=== PATIENT | female | born 1945 | race Two or more races ===

== ENCOUNTER 2025-06-14 08:12 | Inpatient (IN) | payer MEDICARE, OTHER ==
[~2025-06-14] VITALS: Ht 162.6 cm; Wt 70.4 kg
[~2025-06-14 08:12] MED LIST: ATEN-60; LISI-711; METF-371; NOVOLOG; SIMV40TA18
--- NOTE | 2025-06-14 08:22 | ECG ---
[facility] Test Date: 2025-06-14 Test Time: 08:16:20 Pat Name: LORETA SIMS Department: Room: 0221 Gender: F Ordering Machine Operator: DEEPTI : 1945 Requested By: ALEKSEY PÉREZ Order Number: [id number] Reading MD: Collins Moreno Measurements Intervals [place] Rate: 49 P: 58 UT: 169 QRS: 6 QRSD: 90 T: 71 QT: 476 QTc: 430 Interpretive Statements Sinus bradycardia Low voltage, precordial leads Baseline wander in lead(s) V2 Electronically Signed On 06-17-2025 19:21:00 PST by Collins Moreno Please click the below link to view image of tracing.
--- NOTE | 2025-06-14 08:23 | ED.PDOC ---
Altered Mental Status HPI Comments 79 year old female with PMHx Dementia, HLD, HTN, DM presents to the ED via EMS with a chief complaint of ALOC onset today. Per EMS, patient's called 911 due to patient being altered, confused. Patient's baseline is A&O x2, currently A&O x1. She currently has PICC line in place on LT arm, is being treated for UTI, home health nurse visits daily to give antibiotic. Patient is poor historian. No other symptoms or modifying factors present at this time. Chief Complaint: ALOC Time Seen by MD: 08:20 Primary Care Provider: MATT Reviewed Notes: Medications, Allergies Allergies: Coded Allergies: NO KNOWN ALLERGIES (Unverified , 11/22/12) Home Meds Reported Medications Atenolol (Atenolol) 25 Mg Tab 11/22/12 Metformin Hydrochloride (Metformin Hcl) 850 Mg Tab 11/22/12 Simvastatin (Simvastatin) 40 Mg Tab 11/22/12 Lisinopril (Zestril) 20 Mg Tab 11/22/12 [Novolog] No Conflict Check 11/22/12 Information Source: Emergency Med Personnel Mode of Arrival: EMS Severity: Moderate Timing: Days Duration: Since onset Prehospital treatment: None Quality: Decreased Alertness, Change in Behavior, Confusion Recent: Urinary Symptoms History of: Dementia, Diabetes Past Medical History PAST MEDICAL HISTORY: Dementia, DM, High Lipids, HTN Surgical History: Hysterectomy Family History Family History: No family hx of DM, No family hx of HTN Social History Smoker: Quit Greater Than 1 Year, Less Than 1 Pack/Day Alcohol: Rarely Drugs: Denies Drug Use Lives In: Home Unable to Obtain due to: Altered Mental Status, Dementia Physical Exam General Appearance: Normal HEENT: Normal ENT Inspection, Pharynx Normal, TMs Normal Neck: Full Range of Motion, Non-Tender, Normal, Normal Inspection Respiratory: Chest Non-Tender, Lungs Clear, No Accessory Muscle Use, No Respiratory Distress, Normal Breath Sounds Cardiovascular: No Edema, No JVD, No Murmur, No Gallop, Normal Peripheral Pulses, Regular Rate/Rhythm Breast Exam: Deferred Gastrointestinal: No Organomegaly, Non Tender, No Pulsatile Mass, Normal Bowel Sounds, Soft Genitalia: Deferred Pelvic: Deferred Rectal: Deferred Extremities: No calf tenderness, Normal capillary refill, Non-tender, No pedal edema, Other (PICC line noted to LT arm) Musculoskeletal : Apperance: Normal Neurologic: Motor Weakness Cerebellar Function: Normal Reflexes: Normal Skin: Dry, Normal Color, Warm Lymphatic: No Adenopathy Was a procedure done? Was a procedure done?: No Differential Diagnosis (ALOC) Differential Diagnosis: Dehydration, Hypoglycemia, DKA, Hypoxemia, CVA, Mass Lesion, Heart Failure X-Ray, Labs, Meds, VS Vital Signs Date Time Temp Pulse Resp B/P (MAP) Pulse Ox O2 Delivery O2 Flow Rate FiO2 06/14/25 10:08 55 12 90 Room Air* 0 21 06/14/25 10:08 97.4 55 12 118/84 (95) 90 97.4 06/14/25 08:16 49 06/14/25 08:15 97.6 51 18 98 97.6 Lab Test 06/14/25 12:00 06/14/25 10:14 06/14/25 09:57 Range/Units Lactic Acid Level Pending 3.1 *H 0.4-2.0 mmol/L Troponin I High Sensitivity Pending 5 </=34 ng/L Urine Color Yellow Yellow Urine Clarity Clear Clear Urine pH 5.0 5.0-9.0 Urine Specific [place] 1.016 1.001-1.035 Urine Protein 1+ H Negative Urine Ketones Negative Negative Urine Blood Negative Negative /uL Urine Nitrite Negative Negative Urine Bilirubin Negative Negative Urine Urobilinogen Normal Negative mg/dL Urine Leukocyte Esterase Negative Negative /uL Urine RBC 3 0 - 4 /hpf Urine Microscopic WBC 7 H 0-5 /HPF Urine Squamous Epithelial Cells Few <5 /hpf Urine Bacteria None seen None Seen /hpf Urine Mucus Few None Seen Urine Yeast (Budding) Many None Seen /hpf Urine Glucose Normal Normal mg/dL White Blood Count 11.8 H 4.4-10.8 10^3/uL Red Blood Count 3.69 L 4.0-5.20 10^6/uL Hemoglobin 9.9 L 12.2-16.2 g/dL Hematocrit 31.7 L 36.0-46.0 % Mean Corpuscular Volume 85.9 80.0-100.0 fL Mean Corpuscular Hemoglobin 26.9 L 28.0-32.0 pg Mean Corpuscular Hemoglobin Concent 31.3 L 32.0-36.0 g/dL Red Cell Distribution Width 17.3 H 11.8-14.3 % Platelet Count 319 140-450 10^3/uL Mean Platelet Volume 9.0 6.9-10.8 fL Neutrophils (%) (Auto) 76.4 37.0-80.0 % Lymphocytes (%) (Auto) 14.1 10.0-50.0 % Monocytes (%) (Auto) 7.7 0.0-12.0 % Eosinophils (%) (Auto) 1.1 0.0-7.0 % Basophils (%) (Auto) 0.7 0.0-2.0 % Neutrophils # (Auto) 9.0 H 1.6-8.6 10 ^3/uL Lymphocytes # (Auto) 1.7 0.4-5.4 10 ^3/uL Monocytes # (Auto) 0.9 0-1.3 10 ^3/uL Eosinophils # (Auto) 0.1 0-0.8 10 ^3/uL Basophils # (Auto) 0.1 0-0.2 10 ^3/uL Nucleated Red Blood Cells 0.0 % Sodium Level 142 136-145 mmol/L Potassium Level 4.6 3.5-5.1 mmol/L Chloride Level 104 98-107 mmol/L Carbon Dioxide Level 23 20-31 mmol/L Anion Gap 15 5-15 Blood Urea Nitrogen 49 H 9-23 mg/dL Creatinine 1.24 H 0.550-1.02 mg/dL Glomerular Filtration Rate Calc 45 >90 mL/min BUN/Creatinine Ratio 39.5 H 10.0-20.0 Serum Glucose 213 H 74-106 mg/dL Calcium Level 9.6 8.7-10.4 mg/dL Total Bilirubin 0.5 0.2-1.0 mg/dL Aspartate Amino Transferase (AST) 25 13-40 U/L Alanine Aminotransferase (ALT) 18 7-40 U/L Alkaline Phosphatase 165 H 46-116 U/L B-Type Natriuretic Peptide 123.55 0-100 pg/mL Total Protein 7.2 5.7-8.2 g/dL Albumin 4.4 3.2-4.8 g/dL Lipase 36 12-53 U/L [facility] [id number] [place] [id number] Ph: [phone] DIAGNOSTIC IMAGING Diagnostic Imaging Report : [id number] Signed PATIENT: LORETA SIMS ACCT: [id number] UNIT: [id number] : 1945 LOC: ER ROOM / BED: / AGE / SEX: 79 / F ADM STATUS: REG ER SERVICE 8 ORDERING PHYSICIAN: ALEKSEY PÉREZ MD PROCEDURE(s): HWOCT - HEAD WITHOUT CONTRAST REASON: ams ORDER NUMBER(s): [id number], ACCESSION NUMBER(s): [id number] EXAM: CT HEAD WITHOUT CONTRAST INDICATION: ams TECHNIQUE: CT of the head without intravenous contrast. Radiation Dose Information: CT Dose: CTDI volume is 56.9 mGy. Dose-length product is 1007.6 mGy*cm The dose indicators for CT are the volume Computed Tomography (CT) Dose Index (CTDIvol) and the Dose Length Product (DLP), and are measured in units of mGy and mGy-cm, respectively. These indicators are not patient dose, but values generated from the CT scanner acquisition factors. The report includes radiation exposure data for exposures received during this examination. COMPARISON: None FINDINGS: There is no evidence of acute intracranial hemorrhage, extra-axial collection, mass effect, midline shift, herniation or hydrocephalus. The ventricles, sulci and cisterns are age appropriate. The seymour-white differentiation is intact. Patchy periventricular and subcortical white matter hypoattenuation is nonspecific but may be related to small vessel ischemic disease. The visualized paranasal sinuses and mastoid air cells are clear. The surrounding soft tissues and osseous structures are unremarkable. IMPRESSION: No acute intracranial abnormality. ATED BY: BRAYDON FORD MD DICTATED DATE/TIME: 06/14/25918 SIGNED BY: BRAYDON FORD MD SIGNED DATE/TIME: 06/14/25918 CC: [place] [id number] Ph: [phone] DIAGNOSTIC IMAGING Diagnostic Imaging Report : [id number] Signed PATIENT: LORETA SIMS ACCT: [id number] UNIT: [id number] : 1945 LOC: ER ROOM / BED: / AGE / SEX: 79 / F ADM STATUS: REG ER SERVICE 8 ORDERING PHYSICIAN: ALEKSEY PÉREZ MD PROCEDURE(s): CXRP - CHEST PORTABLE REASON: ams ORDER NUMBER(s): [id number], ACCESSION NUMBER(s): [id number] INDICATION: ams TECHNIQUE: Frontal view of the chest. COMPARISON: None FINDINGS: Cortical deformity involving the proximal right humerus, dedicated right should er x-ray is recommended.. The heart and mediastinal contours are grossly unremarkable. There is no evidence of pleural disease. The lungs are clear. . IMPRESSION: 1. No evidence of acute disease. ATED BY: BRAYDON FORD MD DICTATED DATE/TIME: 06/14/25922 SIGNED BY: BRAYDON FORD MD SIGNED DATE/TIME: 06/14/25922 CC: Time of 1ST Reevaluation: 08:50 Reevaluation 1ST: Unchanged Patient Education/Counseling: Other Family Education/Counseling: No Family Present SEPSIS Sepsis Screen Date sepsis recognized/suspect: Jun 14, 2025 Time Sepsis recognized/suspect: 817 Recent Procedure: No On Antibiotic Therapy: Yes (UNKNOWN ABX FOR UTI) Respiratory Rate >20: No Heart Rate >90: No Temp<36 C (96.8 F) or >38.3 C: No SBP <90 or MAP <65 mmHG: No New Acute Mental Status Change: No Is the patient on CPAP, BIPAP,: No Physician Orders Chest Portable (06/14/25 08:19) Head Without Contrast (06/14/25 08:19) Blood Culture (06/14/25 08:19) Urine Bacterial Culture (06/14/25 08:19) Troponin-I Hs (06/14/25 09:19) Troponin-I Hs (06/14/25 11:19) Electrocardigram (06/14/25 09:19) Electrocardigram (06/14/25 11:19) Straight Cath. (06/14/25 ) Cefepime 2gm Extended Infusion (06/14/25 12:30) Vancomycin (06/14/25 12:30) Vital Signs Date Time Temp Pulse Resp B/P (MAP) Pulse Ox O2 Delivery O2 Flow Rate FiO2 06/14/25 10:08 55 12 90 Room Air* 0 21 06/14/25 10:08 97.4 55 12 118/84 (95) 90 97.4 06/14/25 08:16 49 06/14/25 08:15 97.6 51 18 14 98 97.6 Laboratory Tests Test 06/14/25 09:57 06/14/25 12:00 Lactic Acid Level 3.1 mmol/L (0.4-2.0) *H Pending White Blood Count 11.8 10^3/uL (4.4-10.8) H Departure 1 Departure Time of Disposition: 12:31 (Patient with a worsening altered mental status and suspected sepsis. We will empirically cover patient with antibiotics. Patient appears mildly volume overloaded so we will not give the patient a full fluid bolus. We will admit patient for further workup and expert consultation) Impression: Primary Impression: Acute metabolic encephalopathy Additional Impression: Suspected sepsis Disposition: ADMITTED INPATIENT Admit to: Tele Condition: Guarded Critical Care Note Critical Care Time?: Yes Critical care comment: Suspected sepsis and encephalopathy Authorized and Performed by: Aleksey Pérez MD Total critical care time: Approximately 39 minutes Due to a high probability of clinically significant, life threatening deterioration, the patient required my highest level of preparedness to intervene emergently and I personally spent this critical care time directly and personally managing the patient. This critical care time included obtaining a history; examining the patient; pulse oximetry; ordering and review of studies; arranging urgent treatment with development of a management plan; evaluation of patient's response to treatment; frequent reassessment; and, discussions with other providers. This critical care time was performed to assess and manage the high probability of imminent, life-threatening deterioration that could result in multi-organ failure. It was exclusive of separately billable procedures and treating other patients and teaching time. Please see my other sections and the rest of the note for further information on patient assessment and treatment. Stability Stability form required: No Heart Score Heart Score: Heart Score Response (Comments) Value History N/A 0 EKG N/A 0 Age N/A 0 Risk Factors N/A 0 Troponin N/A 0 Total 0 I personally scribed for ALEKSEY PÉREZ MD ([email or web address]) on 06/14/25 at 08:23. Electronically submitted by Wendy Luz ([email or web address]). I personally scribed for ALEKSEY PÉREZ MD ([email or web address]) on 06/14/25 at 09:35. Electronically submitted by Wendy Luz ([email or web address]). ALEKSEY PÉREZ MD Jun 14, 2025 08:23
--- NOTE | 2025-06-14 09:22 | DVH ---
EXAM: CT HEAD WITHOUT CONTRAST INDICATION: ams TECHNIQUE: CT of the head without intravenous contrast. Radiation Dose Information: CT Dose: CTDI volume is 56.9 mGy. Dose-length product is 1007.6 mGy*cm The dose indicators for CT are the volume Computed Tomography (CT) Dose Index (CTDIvol) and the Dose Length Product (DLP), and are measured in units of mGy and mGy-cm, respectively. These indicators are not patient dose, but values generated from the CT scanner acquisition factors. The report includes radiation exposure data for exposures received during this examination. COMPARISON: None FINDINGS: There is no evidence of acute intracranial hemorrhage, extra-axial collection, mass effect, midline shift, herniation or hydrocephalus. The ventricles, sulci and cisterns are age appropriate. The seymour-white differentiation is intact. Patchy periventricular and subcortical white matter hypoattenuation is nonspecific but may be related to small vessel ischemic disease. The visualized paranasal sinuses and mastoid air cells are clear. The surrounding soft tissues and osseous structures are unremarkable. IMPRESSION: No acute intracranial abnormality.
--- NOTE | 2025-06-14 09:25 | DVH ---
INDICATION: ams TECHNIQUE: Frontal view of the chest. COMPARISON: None FINDINGS: Cortical deformity involving the proximal right humerus, dedicated right shoulder x-ray is recommended.. The heart and mediastinal contours are grossly unremarkable. There is no evidence of pleural disease. The lungs are clear. . IMPRESSION: 1. No evidence of acute disease.
[2025-06-14 10:08] VITALS: PULSE 55; RESP 12; O2SAT 90
[2025-06-14 10:26] LABS: Mean Corpuscular Hemoglobin 26.9 pg (28.0-32.0); Nucleated Red Blood Cells % 0.0 %
[2025-06-14 10:28] LABS: Hematocrit 31.7 % (36.0-46.0); Hemoglobin 9.9 g/dL (12.2-16.2); Mean Corpuscular Volume 85.9 fL (80.0-100.0)
[2025-06-14 10:32] LABS: Alanine Aminotransferase 18 U/L (7-40); Albumin 4.4 g/dL (3.2-4.8); Anion Gap 15 (5-15); BUN/Creatinine Ratio 39.5 (10.0-20.0); Calcium 9.6 mg/dL (8.7-10.4); Carbon Dioxide 23 mmol/L (20-31); Chloride 104 mmol/L (98-107); Lipase 36 U/L (12-53); Potassium 4.6 mmol/L (3.5-5.1); Sodium 142 mmol/L (136-145); Total Protein 7.2 g/dL (5.7-8.2)
[2025-06-14 10:33] LABS: Bilirubin, Total 0.5 mg/dL (0.2-1.0)
[2025-06-14 10:35] LABS: Alkaline Phosphatase 165 U/L (46-116); Blood Urea Nitrogen 49 mg/dL (9-23); Glucose 213 mg/dL (74-106)
[2025-06-14 10:57] LABS: Lactic Acid w/Reflex 3.1 mmol/L (0.4-2.0)
[2025-06-14 11:52] LABS: Urine Budding Yeast MANY /hpf (None Seen); Urine Protein, UAD 1+ (Negative)
[2025-06-14] MEDS ORDERED: CEFEPIME 2GM/50ML NS 50 ML IV ONE (12:30)
--- NOTE | 2025-06-14 13:01 | DVHHP2 ---
History of Present Illness History of Present Illness This is a 79-year-old female with a history of endometrial and ovarian cancer, recurrent nephrolithiasis, multiple UTIs, hypertension, diabetes, and hyperlipidemia. She was brought by her after an acute change in mental status today; he reportedly called 911. Baseline per EMR is A&O 2, and on my evaluation she remained A&O 2. She was evaluated alone. She has a PICC in the left arm for outpatient ertapenem therapy for a presumed UTI. Vitals on arrival showed no fever, pulse 55, RR 12, BP 118/84, and SpO2 90% on room air. Labs showed WBC 11.8, Hgb 9.9, platelets 319, Na and K normal, Cr 1.24 with GFR 45, glucose 213, alkaline phosphatase 164, BNP 123. UA had 1+ protein without pyuria or nitrites, which may be affected by ongoing carbapenem therapy. Head CT was normal and chest X-ray showed no acute disease. She will be admitted for evaluation of sepsis and acute encephalopathy, likely related to a urinary source given her ongoing treatment. PMH Endometrial cancer, ovarian cancer, recurrent nephrolithiasis, recurrent UTIs, hypertension, diabetes mellitus type 2, hyperlipidemia, dementia. PSH Gynecologic surgeries; other surgical history not reported. Social History Lives with . No known alcohol, tobacco, or drug use. ROS Negative except mental status change. Review of Systems Allergies: Coded Allergies: NO KNOWN ALLERGIES (Unverified , 11/22/12) Medications Current Medications Medications Dose Ordered Sig/Dannielle Route Start Time Stop Time Status Last Admin Dose Admin Sodium Chloride 1,000 ml @ 60 mls/hr [id number] IV 06/14/25 12:45 UNV Acetaminophen 650 mg Q6HP PRN PO 06/14/25 12:45 UNV Enoxaparin Sodium 40 mg DAILY SC 06/15/25 10:00 UNV Meropenem 50 ml @ 17 mls/hr Q12HR IV 06/14/25 22:00 UNV Exam Vital Signs Vital Signs Date Time Temp Pulse Resp B/P (MAP) Pulse Ox O2 Delivery O2 Flow Rate FiO2 06/14/25 10:08 55 12 90 Room Air* 0 21 06/14/25 10:08 97.4 118/84 (95) 97.4 Exam General: Awake, cooperative, A&O 2. HEENT: No focal deficits. Neck: Supple. Cardiac: Regular rate and rhythm. Lungs: Clear bilaterally. Abdomen: Soft, nondistended, nontender. Extremities: No edema. Neuro: No focal deficits. Skin: PICC line left arm without erythema. Labs/Xrays Labs Test 06/14/25 12:00 06/14/25 10:14 06/14/25 09:57 Range/Units Lactic Acid Level 1.5 0.4-2.0 mmol/L Troponin I High Sensitivity 5 </=34 ng/L Urine Color Yellow Yellow Urine Clarity Clear Clear Urine pH 5.0 5.0-9.0 Urine Specific [place] 1.016 1.001-1.035 Urine Protein 1+ H Negative Urine Ketones Negative Negative Urine Blood Negative Negative /uL Urine Nitrite Negative Negative Urine Bilirubin Negative Negative Urine Urobilinogen Normal Negative mg/dL Urine Leukocyte Esterase Negative Negative /uL Urine RBC 3 0 - 4 /hpf Urine Microscopic WBC 7 H 0-5 /HPF Urine Squamous Epithelial Cells Few <5 /hpf Urine Bacteria None seen None Seen /hpf Urine Mucus Few None Seen Urine Yeast (Budding) Many None Seen /hpf Urine Glucose Normal Normal mg/dL White Blood Count 11.8 H 4.4-10.8 10^3/uL Red Blood Count 3.69 L 4.0-5.20 10^6/uL Hemoglobin 9.9 L 12.2-16.2 g/dL Hematocrit 31.7 L 36.0-46.0 % Mean Corpuscular Volume 85.9 80.0-100.0 fL Mean Corpuscular Hemoglobin 26.9 L 28.0-32.0 pg Mean Corpuscular Hemoglobin Concent 31.3 L 32.0-36.0 g/dL Red Cell Distribution Width 17.3 H 11.8-14.3 % Platelet Count 319 140-450 10^3/uL Mean Platelet Volume 9.0 6.9-10.8 fL Neutrophils (%) (Auto) 76.4 37.0-80.0 % Lymphocytes (%) (Auto) 14.1 10.0-50.0 % Monocytes (%) (Auto) 7.7 0.0-12.0 % Eosinophils (%) (Auto) 1.1 0.0-7.0 % Basophils (%) (Auto) 0.7 0.0-2.0 % Neutrophils # (Auto) 9.0 H 1.6-8.6 10 ^3/uL Lymphocytes # (Auto) 1.7 0.4-5.4 10 ^3/uL Monocytes # (Auto) 0.9 0-1.3 10 ^3/uL Eosinophils # (Auto) 0.1 0-0.8 10 ^3/uL Basophils # (Auto) 0.1 0-0.2 10 ^3/uL Nucleated Red Blood Cells 0.0 % Sodium Level 142 136-145 mmol/L Potassium Level 4.6 3.5-5.1 mmol/L Chloride Level 104 98-107 mmol/L Carbon Dioxide Level 23 20-31 mmol/L Anion Gap 15 5-15 Blood Urea Nitrogen 49 H 9-23 mg/dL Creatinine 1.24 H 0.550-1.02 mg/dL Glomerular Filtration Rate Calc 45 >90 mL/min BUN/Creatinine Ratio 39.5 H 10.0-20.0 Serum Glucose 213 H 74-106 mg/dL Calcium Level 9.6 8.7-10.4 mg/dL Total Bilirubin 0.5 0.2-1.0 mg/dL Aspartate Amino Transferase (AST) 25 13-40 U/L Alanine Aminotransferase (ALT) 18 7-40 U/L Alkaline Phosphatase 165 H 46-116 U/L B-Type Natriuretic Peptide 123.55 0-100 pg/mL Total Protein 7.2 5.7-8.2 g/dL Albumin 4.4 3.2-4.8 g/dL Lipase 36 12-53 U/L SEPSIS Sepsis Screen Date sepsis recognized/suspect: Jun 14, 2025 Time Sepsis recognized/suspect: 817 Recent Procedure: No On Antibiotic Therapy: Yes (UNKNOWN ABX FOR UTI) Respiratory Rate >20: No Heart Rate >90: No Temp<36 C (96.8 F) or >38.3 C: No SBP <90 or MAP <65 mmHG: No New Acute Mental Status Change: No Is the patient on CPAP, BIPAP,: No Physician Orders Chest Portable (06/14/25 08:19) Head Without Contrast (06/14/25 08:19) Blood Culture (06/14/25 08:19) Urine Bacterial Culture (06/14/25 08:19) Electrocardigram (06/14/25 09:19) Electrocardigram (06/14/25 11:19) Straight Cath. (06/14/25 ) Cefepime 2gm/50ml Ns (Maxipime 2gm/50ml) (06/14/25 12:30) Vancomycin 1gm/250ml Kit (06/14/25 12:30) Code Status (06/14/25 12:43) Vital Signs .PER UNIT PROTOCOL (06/14/25 12:43) Review Orders With Adm.Md (06/14/25 12:43) Consistent Carb([facility])Diabetes (06/14/25 Lunch) Sodium Chloride 0.9% (06/14/25 12:45) Acetaminophen Tablet (Tylenol Tablet) (06/14/25 12:45) Notify Md Of Changes From Base (06/14/25 12:43) Advance Directive (06/14/25 12:43) Patient Condition (06/14/25 12:43) Allergies (06/14/25 12:43) Drug Screen (06/14/25 12:43) Ambulate Every 4hours Q4H (06/14/25 12:43) Hemoglobin A1c (06/14/25 12:43) Enoxaparin Sodium (Lovenox) (06/15/25 10:00) Oxygen By Nasal Cannula (06/14/25 12:43) Stat Ekg For Chest Pain (06/14/25 12:43) Notify Md Of Changes From Base (06/14/25 12:43) Commercial Correspondent For 24 Hours (06/14/25 12:43) Emergency Dysrhythmia Protocol (06/14/25 12:43) Rhythm Strips Once Every Shift (06/14/25 12:43) Meropenem 1gm Ivpb (Merrem 1gm/50ml) (06/14/25 12:45) Meropenem 1gm Ivpb (Merrem 1gm/50ml) (06/14/25 22:00) Admit (06/14/25 12:54) Communication Order (06/14/25 12:59) Ct Ab Pel Wo Con-No Oral Or Iv (06/14/25 12:59) Vital Signs Date Time Temp Pulse Resp B/P (MAP) Pulse Ox O2 Delivery O2 Flow Rate FiO2 06/14/25 10:08 55 12 90 Room Air* 0 21 06/14/25 10:08 97.4 55 12 118/84 (95) 90 97.4 06/14/25 08:16 49 06/14/25 08:15 97.6 51 18 98 97.6 Laboratory Tests Test 06/14/25 09:57 06/14/25 12:00 Lactic Acid Level 3.1 mmol/L (0.4-2.0) *H 1.5 mmol/L (0.4-2.0) White Blood Count 11.8 10^3/uL (4.4-10.8) H Assessment/Plan Assessment/Plan # Sepsis, possible complicated UTI Likely urinary source given her recent outpatient ertapenem use and history of recurrent UTIs, with leukocytosis and acute encephalopathy as possible organ dysfunction. She requires inpatient evaluation to assess for resistant organisms or occult complications such as pyelonephritis or abscess. Start meropenem given recent carbapenem exposure, obtain blood and urine cultures, gentle IV hydration at 60 mL/hr and monitor vitals and urine output. CT abdomen/pelvis ordered to evaluate source. Continue to follow labs and adjust antibiotics per culture data. # Acute metabolic encephalopathy Likely secondary to infection superimposed on baseline dementia. Neuro exam without focal deficits and head CT is normal, making structural causes less likely. Treat underlying infection, maintain stable hemodynamics, correct metabolic derangements, and provide delirium precautions. # Dementia Baseline A&O 2 with recent acute worsening. to be contacted for collateral and to clarify cognitive baseline. # Diabetes mellitus type 2 Glucose 213 on arrival. Will hold SGLT2 inhibitor during acute illness and start insulin sliding scale. # Hypertension BP stable on arrival. Will resume home atenolol, amlodipine, and lisinopril as tolerated and monitor. # Hyperlipidemia # Hypothyroidism Resume home levothyroxine. # History of recurrent UTI High likelihood of resistant organisms given outpatient ertapenem use. Broad- spectrum coverage with meropenem is appropriate pending cultures and imaging. # Antiplatelet therapy clopidogrel Home medication per outside records. Need confirmation from regarding indication, especially considering comorbidities. Will resume if safe. Case discussed with Dr Saleh Full code DVT prophylaxis: enoxaparin Plan discussed with: Patient, Other (rn) My Orders Orders - MAXIM BERMUDEZ RESIDENT Procedure Category Date Status Time Code Status CODE 06/14/25 Transmitted 12:43 Vital Signs SAIDA 06/14/25 In Process 12:43 Review Orders With SAIDA 06/14/25 In Process Adm.Md 12:43 Consistent DIET 06/14/25 Transmitted Carb(Ccho)Diabetes Lunch Sodium Chloride 0.9% PHA 06/14/25 Logged 12:45 Acetaminophen Tablet PHA 06/14/25 Logged (Tylenol Tablet) 12:45 Notify Md Of Changes [facility] 06/14/25 In Process From Base 12:43 Advance Directive [facility] 06/14/25 In Process 12:43 Patient Condition ORDERS 06/14/25 Transmitted 12:43 Allergies SAIDA 06/14/25 In Process 12:43 Drug Screen LAB 06/14/25 In Process 12:43 Ambulate Every 4hours [facility] 06/14/25 In Process 12:43 Hemoglobin A1c LAB 06/14/25 In Process 12:43 Enoxaparin Sodium PHA 06/15/25 Logged (Lovenox) 10:00 Oxygen By Nasal RT 06/14/25 Transmitted Cannula 12:43 Stat Ekg For Chest [facility] 06/14/25 In Process Pain 12:43 Notify Md Of Changes [facility] 06/14/25 In Process From Base 12:43 Commercial Correspondent For [facility] 06/14/25 In Process 24 Hours 12:43 Emergency Dysrhythmia [facility] 06/14/25 In Process Protocol 12:43 Rhythm Strips Once [facility] 06/14/25 In Process Every Shift 12:43 Meropenem 1gm Ivpb PHA 06/14/25 Logged (Merrem 1gm/50ml) 12:45 Meropenem 1gm Ivpb PHA 06/14/25 Logged (Merrem 1gm/50ml) 22:00 Admit ADMIT 06/14/25 Transmitted 12:54 Communication Order ORDERS 06/14/25 Transmitted 12:59 Ct Ab Pel Wo Con-No CT 06/14/25 Logged Oral Or Iv 12:59 Date of Service: Jun 14, 2025 Billing Provider: MAXIM BERMUDEZ Common Visit Codes: [id number] INP/OBS CARE (HIGH) Secondary Visit Codes: [id number] CARE PLAN 30 MINUTES MAXIM BERMUDEZ Jun 14, 2025 13:00
[2025-06-14] MEDS: VANCOMYCIN 1GM/250ML KIT 250 ML IV ONE (13:07)
[2025-06-14] MEDS ORDERED: DEXTROSE (50%) 50ML SYRG IV PRN (13:15)
[2025-06-14] MEDS: SODIUM CHLORIDE 0.9% 1,000 ML IV SCH (13:34)
[2025-06-14 14:07] LABS: Triglycerides 163 mg/dL (< 150)
[2025-06-14 14:08] LABS: Cholesterol 131 mg/dL (< 200); HDL Cholesterol 34 mg/dL (40-59)
[2025-06-14] MEDS: MEROPENEM 1GM IVPB 50 ML IV ONE (14:10)
--- NOTE | 2025-06-14 14:20 | DVH ---
EXAM: CT CT AB PEL WO CON-NO ORAL OR IV HISTORY: sepsis work up Comparison Study: None Exam Date: 06/14/2025 01:16 PM Radiation Dose Information: CT Dose: CTDI volume is 16.38 mGy. Dose-length product is 952.93 mGy*cm Technique: Multidetector CT of the abdomen and pelvis was performed. Imaging was performed without IV contrast. Axial, coronal and sagittal multiplanar reformats were obtained from the axial data set by the technologist. Findings: Lack of intravenous contrast compromises evaluation of perfusion and for isodense lesions. Lower chest: Clear. Liver: Unremarkable Biliary system: Unremarkable Spleen: Unremarkable Pancreas: Unremarkable. Adrenals: 2 cm indeterminate left adrenal nodule. Kidneys and ureters: Mild left-sided pelviectasis without overt hydronephrosis. Left upper pole cysts. Bowel: No obstruction. Colonic diverticulosis without associated colonic wall thickening or surrounding stranding. Bladder: Unremarkable Reproductive organs: No abnormal mass. Lymph nodes: Unremarkable. Peritoneum: Unremarkable Vessels: Patency not evaluated on this noncontrast study. Bones and soft tissue: No aggressive osseous lesion IMPRESSION: No acute CT findings in the abdomen and pelvis. Indeterminate 2 cm left adrenal nodule.
[2025-06-14] MEDS: InsuLIN REG 1unit/0.01ml Soln (100units/ml) SC SCH (17:43)
[2025-06-14] MEDS: ACCU-CHEK COMFORT CURVE STRIP VI SCH (17:43)
[2025-06-14 19:30] VITALS: PULSE 78; RESP 14; O2SAT 95
[2025-06-14 20:20] VITALS: BP 153/85; PULSE 53; RESP 17; TEMP 97.3; O2SAT 96
[2025-06-14] MEDS ORDERED: DONE1TAB88 PO (21:57)
[2025-06-14] MEDS ORDERED: AMLO1TAB22 PO (21:57)
[2025-06-14] MEDS ORDERED: QUET1TAB11 PO (21:57)
[2025-06-14] MEDS ORDERED: DAPA1TAB PO (21:57)
[2025-06-14] MEDS ORDERED: CHOL4POW33 PO (21:57)
[2025-06-14] MEDS ORDERED: ATOR40TA52 PO (21:57)
[2025-06-14] MEDS ORDERED: LISI40TA16 PO (21:57)
[2025-06-14] MEDS ORDERED: MEMA1TAB5 PO (21:57)
[2025-06-14] MEDS ORDERED: ATEN25TA PO (21:57)
[2025-06-14] MEDS ORDERED: LEVO75TA6 PO (21:57)
[2025-06-14] MEDS ORDERED: ERTA1INJ (21:57)
[2025-06-14] MEDS ORDERED: OMEP1CAP70 PO (21:57)
[2025-06-14] MEDS ORDERED: CITA-77 PO (21:57)
[2025-06-14] MEDS ORDERED: CLOP75TA70 PO (21:57)
[2025-06-14] MEDS: MEROPENEM 1GM IVPB 50 ML IV SCH (23:44)
[2025-06-15 01:00] VITALS: BP 146/48; PULSE 60; RESP 18; TEMP 97.8; O2SAT 97
[2025-06-15 05:00] VITALS: BP 146/69; PULSE 59; RESP 17; TEMP 97.3; O2SAT 96
[2025-06-15] MEDS: LEVOTHYROXINE SODIUM 25 MCG TAB PO SCH (06:39)
[2025-06-15 06:53] LABS: Hematocrit 29.2 % (36.0-46.0); Hemoglobin 9.4 g/dL (12.2-16.2); Mean Corpuscular Hemoglobin 27.3 pg (28.0-32.0); Mean Corpuscular Volume 84.3 fL (80.0-100.0); Nucleated Red Blood Cells % 0.1 %
[2025-06-15 07:20] LABS: Alanine Aminotransferase 15 U/L (7-40); Albumin 3.9 g/dL (3.2-4.8); Anion Gap 12 (5-15); BUN/Creatinine Ratio 36.9 (10.0-20.0); Calcium 9.3 mg/dL (8.7-10.4); Carbon Dioxide 25 mmol/L (20-31); Chloride 107 mmol/L (98-107); Potassium 3.9 mmol/L (3.5-5.1); Sodium 144 mmol/L (136-145); Total Protein 6.3 g/dL (5.7-8.2)
[2025-06-15 07:21] LABS: Bilirubin, Total 0.5 mg/dL (0.2-1.0)
[2025-06-15 07:24] LABS: Alkaline Phosphatase 141 U/L (46-116); Blood Urea Nitrogen 31 mg/dL (9-23); Glucose 126 mg/dL (74-106)
[2025-06-15] MEDS: ENOXAPARIN SOD 40 MG/0.4 ML SYRINGE SC SCH (09:12)
[2025-06-15] MEDS ORDERED: VANCOMYCIN PER PHARMACY 0 MG IV SCH (10:00)
[2025-06-15] MEDS: VANCOMYCIN 1GM/250ML KIT 250 ML IV ONE (10:56)
--- NOTE | 2025-06-15 13:08 | ECG ---
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
--- NOTE | 2025-06-15 13:52 | DVHPNRES ---
Progress Note Date Seen: Jun 15, 2025 Resident Creating Document: SONIA ROCA RESIDENT Medical Necessity Reason Pt with a Central, PICC or Fol: Yes The following are medically ne: PICC Line Subjective Review of Systems This is a 79-year-old female with a PMH of endometrial and ovarian cancer, recurrent nephrolithiasis, multiple UTIs, S/P TAVR,dementia, hypertension, diabetes, and hyperlipidemia. She was brought by her after an acute change in mental status today; as per patient went to [facility] almost 10 days before and put her on IV antibiotic for UTI. patient's reported yesterday patient was more agitated and not following, and, more disoriented, lying on the floor. As per , patient at home is confused, AAO1-2 So reportedly called 911. Baseline per EMR is A&O 2, and on my evaluation she remained A&O 2. She was evaluated alone. She has a Mid line in the left arm for outpatient ertapenem therapy for a presumed UTI. Vitals on arrival showed no fever, pulse 55, RR 12, BP 118/84, and SpO2 90% on room air. Labs showed WBC 11.8, Hgb 9.9, platelets 319, Na and K normal, Cr 1.24 with GFR 45, glucose 213, alkaline phosphatase 164, BNP 123. UA had 1+ protein without pyuria or nitrites, which may be affected by ongoing carbapenem therapy. Head CT was normal and chest X-ray showed no acute disease. She will be admitted for evaluation of sepsis and acute encephalopathy, likely related to a urinary source given her ongoing treatment. CT abdomen and pelvis- No acute CT findings in the abdomen and pelvis. Indeterminate 2 cm left adrenal nodule. CT head no acute intracranial abnormality PMH-Endometrial cancer, ovarian cancer, recurrent nephrolithiasis, recurrent UTIs, hypertension, diabetes mellitus type 2, hyperlipidemia, dementia. PSH-Gynecologic surgeries; other surgical history not reported. Social History-Lives with . No known alcohol, tobacco, or drug use. ROS-Details could not be obtained due to patient's altered mental status Patient was seen today at bedside, Labs and chart reviewed Patient has a midline of the left arm Patient on meropenem Urine culture no growth so far Blood culture no growth so far BERNICE improving Bedside bladder scan revealed urine retention 1000 mL, ordered to insert Mar catheter Ordered renal ultrasound Spoke to patient's Pascual, , discussed patient's current medical condition, plan of care and answered questions Objective vital signs Vital Sign Date Time Temp Pulse Resp B/P (MAP) Pulse Ox O2 Delivery O2 Flow Rate FiO2 06/15/25 08:26 Room Air* 0 21 06/15/25 05:00 97.3 59 17 146/69 (94) 96 97.3 Total Intake and Output 06/14/25 06/14/25 06/15/25 15:00 23:00 07:00 Intake Total 310 ml 410 ml 50 ml Balance 310 ml 410 ml 50 ml medications Current Medications Medications Dose Ordered Sig/Dannielle Route Start Time Stop Time Status Last Admin Dose Admin Sodium Chloride 1,000 ml @ 60 mls/hr [id number] IV 06/14/25 12:45 06/15/25 06:40 60 MLS/HR Acetaminophen 650 mg Q6HP PRN PO 06/14/25 12:45 Enoxaparin Sodium 40 mg DAILY SC 06/15/25 10:00 06/15/25 09:12 40 MG Meropenem 50 ml @ 17 mls/hr Q12HR IV 06/14/25 22:00 06/15/25 09:13 17 MLS/HR Diagnostic Test (Pha) 1 strip ACHS 06/14/25 17:00 06/15/25 10:59 1 STRIP Insulin Human Regular ACHS SC 06/14/25 17:00 06/15/25 11:11 2 UNITS Dextrose 50 ml UD PRN IV 06/14/25 13:15 Levothyroxine Sodium 75 mcg QAM@0600 PO 06/15/25 06:00 06/15/25 06:39 75 MCG Vancomycin HCl 0 ml @ 0 mls/hr PER PHARMACY IV 06/15/25 10:00 Examination General examination- patient with confusion HEENT- PEERLA, no acute nasal discharge Cardiovascular- S1-S2 audible, rate and rhythm regular, no murmur Respiratory- CTAB, no wheeze or rhonchi Gastrointestinal-nontender, bowel sound+. Nondistended Musculoskeletal-no acute joint swelling or tenderness or redness Lower extremity- no leg edema Neurological- cranial nerves intact, no acute dysarthria or dysphagia Psychiatry- alert and oriented x0-1 Skin- no acute rash or purpura laboratory and microbiology Laboratory Tests 06/15/25 06:24 Test 06/15/25 06:24 Range/Units Serum Glucose 126 H 74-106 mg/dL Microbiology Date/Time Source Procedure Growth Status 06/14/25 10:14 Voided Urine Urine Culture - Preliminary No growth Resulted 06/14/25 10:11 Blood Blood Culture - Preliminary NO GROWTH AFTER 24 HOURS OF INCUBATION. Resulted Problem List/Assessment/Plan Problem List/Assessment/Plan Assessment and plan # Acute metabolic encephalopathy likely due to UTI # Acute urinary retention # suspected sepsis likely from UTI # BERNICE likely due to VMN -at home patient was on ertapenem for UTI diagnosis at [facility] recently Urine culture no growth so far Blood culture no growth so far -continue meropenem as prescribed -continue IV fluid as prescribed -ordered Mar catheter -ordered renal ultrasound for further evaluation and care -monitor BMP # hypothyroidism -restarted home medication levothyroxine 75 mcg q.a.m. #H/O TAVR # hypertension -resume home medication amlodipine, lisinopril monitor blood pressure On Plavix Ordered echocardiogram # diabetes mellitus type 2 -insulin sliding scale as prescribed # hyperlipidemia -continue atorvastatin as prescribed # dementia -CT head no acute intracranial abnormality -resumed home medication memantine and donepezil # constipation -ordered lactulose PRN # history of ovarian and endometrial carcinoma Goals of care, Code status Full code; discussed with >15 minutes PUD prophylaxis: Pantoprazole DVT prophylaxis: Lovenox Plan discussed with Dr. Pelaez, nursing staff, Total time spent on patient evaluation, chart review, assessment and plan, discussion discussion >35 minutes Plan discussed with: Patient, Spouse, Other (RN) My Orders My Orders Orders - SONIA ROCA RESIDENT Procedure Category Date Status Time Echo 2d Mode Cardiac US 06/15/25 Logged DOP 08:59 Vancomycin Per [facility] 06/15/25 In Process Pharmacy 10:00 Covid19 Antigen [facility] 06/15/25 Logged Rapid Influenza A&B LAB 06/15/25 Logged 09:56 Blood Alcohol LAB 06/15/25 Logged 09:57 Ammonia LAB 06/15/25 Logged 09:59 Pt Request For Service PT 06/15/25 Logged 12:09 Visit Coding STANDARD RES Billing Provider: BARRY CARLOS MD Date of Service if different f: Jun 15, 2025 Common Visit Codes: [id number] INP/OBS CARE(HIGH) SONIA ROCA RESIDENT Jun 15, 2025 13:51 GIOVANI HASTINGS RESIDENT Jun 15, 2025 22:04
[2025-06-15] MEDS: LACTULOSE 20Gm/30ML SOLN PO ONE ×2 (16:40→23:45)
[2025-06-15] MEDS: PANTOPRAZOLE 40 MG TAB PO SCH (16:40)
[2025-06-15] MEDS: POLYETHYLENE GLYCOL 17 GM PWDR PO ONE (16:41)
[2025-06-15] MEDS: ACETAMINOPHEN 325 MG TAB PO PRN (16:41)
[2025-06-15] MEDS: MEROPENEM 1GM IVPB 50 ML IV SCH (16:54)
[2025-06-15] MEDS: LORazepam 2MG/ML-1ML VIAL IV ONE (17:21)
[2025-06-15] MEDS: TAMSULOSIN HYDROCHLORIDE 0.4 MG CAP PO SCH (17:50)
--- NOTE | 2025-06-15 18:44 | DVH ---
INDICATION: Retention of urine, BERNICE TECHNIQUE: Multiple real-time sonographic images of the kidneys and bladder were obtained. COMPARISON: None FINDINGS: Evaluation of the kidneys is degraded by position high under the ribs. The right kidney measures 11.0 cm in length, which is normal in size. There is normal echogenicity of the right kidney. No hydronephrosis. There is trace right perinephric fluid. The left kidney measures 8.3 cm in length, mildly atrophic. There is normal echogenicity of the left kidney. No hydronephrosis. The urinary bladder is collapsed about a Mar catheter balloon. IMPRESSION: Trace right perinephric fluid, nonspecific. The left kidney appears mildly atrophic.
[2025-06-15 20:00] VITALS: PULSE 65
[2025-06-15] MEDS: ATORVASTATIN 20 MG TAB PO SCH (23:10)
[2025-06-15] MEDS: DOCUSATE SOD 100 MG CAP PO SCH (23:10)
[2025-06-15] MEDS: DONEPEZIL HYDROCHLORIDE 5 MG TAB PO SCH (23:11)
[2025-06-15] MEDS: METOCLOPRAMIDE HCL 5MG/ml INJ 2ml VIAL IV ONE (23:11)
[2025-06-15] MEDS: MEMANTINE HCL 5 MG TAB PO SCH (23:11)
[2025-06-16] MEDS ORDERED: VANCOMYCIN 1GM/250ML KIT 250 ML IV SCH (05:00)
[2025-06-16 06:41] LABS: Hematocrit 30.8 % (36.0-46.0); Hemoglobin 9.9 g/dL (12.2-16.2); Mean Corpuscular Hemoglobin 27.2 pg (28.0-32.0); Mean Corpuscular Volume 84.5 fL (80.0-100.0); Nucleated Red Blood Cells % 0.1 %
[2025-06-16 06:47] LABS: Potassium 4.0 mmol/L (3.5-5.1); Sodium 144 mmol/L (136-145)
[2025-06-16 06:48] LABS: Anion Gap 9 (5-15); Calcium 9.1 mg/dL (8.7-10.4); Carbon Dioxide 27 mmol/L (20-31)
[2025-06-16 06:49] LABS: Chloride 108 mmol/L (98-107)
[2025-06-16 06:54] LABS: BUN/Creatinine Ratio 19.6 (10.0-20.0); Blood Urea Nitrogen 18 mg/dL (9-23); Glucose 124 mg/dL (74-106); INR 1.05 (0.9-1.15); Magnesium 1.9 mg/dL (1.6-2.6); Partial Thromboplastin Time 27.0 SEC (24.5-34.5); Prothrombin Time 11.1 sec (9.3-11.8)
[2025-06-16] MEDS ORDERED: VANCOMYCIN PER PHARMACY 0 MG IV SCH (07:00)
[2025-06-16 07:30] VITALS: PULSE 54; PULSE 60; RESP 17
[2025-06-16 09:00] VITALS: BP 154/75; PULSE 62; RESP 17; TEMP 98.4; O2SAT 97
[2025-06-16] MEDS: CLOPIDOGREL BISULFATE 75 MG TAB PO SCH (10:00)
[2025-06-16] MEDS: VANCOMYCIN 1GM/250ML KIT 250 ML IV ONE (10:36)
[2025-06-16] MEDS: ATENOLOL 25 MG TAB PO SCH (10:38)
[2025-06-16] MEDS: CITALOPRAM HYDROBR 20 MG TAB PO SCH (10:39)
[2025-06-16] MEDS: LISINOPRIL 20 MG TAB PO SCH (10:40)
[2025-06-16 13:00] VITALS: BP 120/63; PULSE 60; RESP 17; TEMP 97.6; O2SAT 96
--- NOTE | 2025-06-16 13:44 | DVHPNRES ---
Progress Note Date Seen: Jun 16, 2025 Resident Creating Document: SONIA ROAC RESIDENT Medical Necessity Reason Pt with a Central, PICC or Fol: Yes The following are medically ne: PICC Line Subjective Review of Systems This is a 79-year-old female with a PMH of endometrial and ovarian cancer, recurrent nephrolithiasis, multiple UTIs, S/P TAVR,dementia, hypertension, diabetes, and hyperlipidemia. She was brought by her after an acute change in mental status today; as per patient went to [facility] almost 10 days before and put her on IV antibiotic for UTI. patient's reported yesterday patient was more agitated and not following, and, more disoriented, lying on the floor. As per , patient at home is confused, AAO1-2 So reportedly called 911. Baseline per EMR is A&O 2, and on my evaluation she remained A&O 2. She was evaluated alone. She has a Mid line in the left arm for outpatient ertapenem therapy for a presumed UTI. Vitals on arrival showed no fever, pulse 55, RR 12, BP 118/84, and SpO2 90% on room air. Labs showed WBC 11.8, Hgb 9.9, platelets 319, Na and K normal, Cr 1.24 with GFR 45, glucose 213, alkaline phosphatase 164, BNP 123. UA had 1+ protein without pyuria or nitrites, which may be affected by ongoing carbapenem therapy. Head CT was normal and chest X-ray showed no acute disease. She will be admitted for evaluation of sepsis and acute encephalopathy, likely related to a urinary source given her ongoing treatment. CT abdomen and pelvis- No acute CT findings in the abdomen and pelvis. Indeterminate 2 cm left adrenal nodule. CT head no acute intracranial abnormality PMH-Endometrial cancer, ovarian cancer, recurrent nephrolithiasis, recurrent UTIs, hypertension, diabetes mellitus type 2, hyperlipidemia, dementia. PSH-Gynecologic surgeries; other surgical history not reported. Social History-Lives with . No known alcohol, tobacco, or drug use. ROS-Details could not be obtained due to patient's altered mental status Patient was seen today at bedside, Labs and chart reviewed Renal ultrasound no hydronephrosis Patient's bowel movement x2 today Urine culture more than 3 organisms growth Patient complained of right shoulder pain, ordered CT Right shoulder-Subacute appearing highly comminuted, displaced, impacted, angulated fracture of the right humeral head and neck with healing response. ordered Orthopedic consult Spoke to patient's Pascual, , discussed patient's current medical condition, plan of care and answered questions. verbalized patient to be DNR. Order in place Objective vital signs Vital Sign Date Time Temp Pulse Resp B/P (MAP) Pulse Ox O2 Delivery O2 Flow Rate FiO2 06/16/25 10:44 140/60 06/16/25 10:38 60 06/16/25 09:00 98.4 17 97 98.4 06/16/25 07:30 Room Air* 0 21 Total Intake and Output 06/15/25 06/15/25 06/16/25 15:00 23:00 07:00 Intake Total 250 ml 200 ml 50 ml Output Total 1250 ml 850 ml Balance 250 ml -1050 ml -800 ml medications Current Medications Medications Dose Ordered Sig/Dannielle Route Start Time Stop Time Status Last Admin Dose Admin Sodium Chloride 1,000 ml @ 60 mls/hr [id number] IV 06/14/25 12:45 06/15/25 06:40 60 MLS/HR Acetaminophen 650 mg Q6HP PRN PO 06/14/25 12:45 Enoxaparin Sodium 40 mg DAILY SC 06/15/25 10:00 06/16/25 10:37 40 MG Diagnostic Test (Pha) 1 strip ACHS 06/14/25 17:00 06/16/25 10:50 1 STRIP Insulin Human Regular ACHS SC 06/14/25 17:00 06/15/25 16:53 2 UNITS Dextrose 50 ml UD PRN IV 06/14/25 13:15 Levothyroxine Sodium 75 mcg QAM@0600 PO 06/15/25 06:00 06/16/25 06:10 75 MCG Pantoprazole Sodium 40 mg DAILY@0600 PO 06/15/25 14:15 06/16/25 06:09 40 MG Amlodipine Besylate 5 mg DAILY PO 06/16/25 10:00 06/16/25 10:44 5 MG Atenolol 25 mg DAILY PO 06/16/25 10:00 06/16/25 10:38 25 MG Citalopram Hydrobromide 20 mg DAILY PO 06/16/25 10:00 06/16/25 10:39 20 MG Clopidogrel Bisulfate 75 mg DAILY PO 06/16/25 10:00 Atorvastatin Calcium 40 mg HS PO 06/15/25 22:00 06/15/25 23:10 40 MG Donepezil HCl 10 mg HS PO 06/15/25 22:00 06/15/25 23:11 10 MG Memantine 10 mg BID PO 06/15/25 22:00 06/16/25 10:39 10 MG Quetiapine Fumarate 25 mg DAILY PO 06/16/25 10:00 06/16/25 10:45 25 MG Lisinopril 40 mg DAILY PO 06/16/25 10:00 06/16/25 10:40 40 MG Meropenem 50 ml @ 17 mls/hr Q8H IV 06/15/25 18:00 06/16/25 02:29 17 MLS/HR Tamsulosin HCl 0.4 mg QPM PO 06/15/25 18:00 Docusate Sodium 100 mg BID PO 06/15/25 22:00 06/16/25 10:44 100 MG Vancomycin HCl 0 ml @ 0 mls/hr PER PHARMACY IV 06/16/25 07:00 Vancomycin HCl 250 ml @ 200 mls/hr Q18H IV 06/17/25 05:00 Cancel Vancomycin HCl 250 ml @ 200 mls/hr Q18H IV 06/17/25 05:00 Examination General examination- patient with confusion HEENT- PEERLA, no acute nasal discharge Cardiovascular- S1-S2 audible, rate and rhythm regular, no murmur Respiratory- CTAB, no wheeze or rhonchi Gastrointestinal-nontender, bowel sound+. Nondistended Musculoskeletal-no acute joint swelling or tenderness or redness Lower extremity- no leg edema Neurological- cranial nerves intact, no acute dysarthria or dysphagia Psychiatry- alert and oriented x0-1 Skin- no acute rash or purpura laboratory and microbiology Laboratory Tests 06/16/25 06:05 Test 06/16/25 06:05 Range/Units Serum Glucose 124 H 74-106 mg/dL Microbiology Date/Time Source Procedure Growth Status 06/14/25 10:14 Voided Urine Urine Culture - Final Complete 06/14/25 10:11 Blood Blood Culture - Preliminary NO GROWTH AFTER 48 HOURS OF INCUBATION. Resulted Problem List/Assessment/Plan Problem List/Assessment/Plan Assessment and plan #Acute metabolic encephalopathy likely due to UTI # suspected sepsis likely from UTI -at home patient was on ertapenem for UTI diagnosis at [facility] recently Urine culture no growth so far Blood culture no growth after 48 hours -continue meropenem as prescribed -continue IV fluid as prescribed # BERNICE likely due to VMN -continue IV fluid as prescribed -monitor BMP # acute retention of urine -ordered Mar catheter -ordered renal ultrasound for further evaluation and care # Right Shoulder fracture #right shoulder pain -CT Right Shoulder -Subacute appearing highly comminuted, displaced, impacted, angulated fracture of the right humeral head and neck with healing response. -ordered orthopedic consult # hypothyroidism -on levothyroxine 75 mcg q.a.m. #H/O TAVR # hypertension -resume home medication amlodipine, lisinopril monitor blood pressure # diabetes mellitus type 2 -insulin sliding scale as prescribed # hyperlipidemia -continue atorvastatin as prescribed # dementia -CT head no acute intracranial abnormality -resumed home medication memantine and donepezil # constipation -ordered lactulose PRN # history of ovarian and endometrial carcinoma Goals of care, Code status DNR ; discussed with >15 minutes PUD prophylaxis: Pantoprazole DVT prophylaxis: Lovenox Plan discussed with Dr. Pelaez, nursing staff, Total time spent on patient evaluation, chart review, assessment and plan, discussion discussion >35 minutes Plan discussed with: Patient, Spouse, Other My Orders My Orders Orders - SONIA ROCA RESIDENT Procedure Category Date Status Time Pantoprazole Tablet PHA 06/15/25 In Process (Protonix Tablet) 14:15 Amlodipine Tablet PHA 06/16/25 In Process (Norvasc Tablet) 10:00 Atenolol Tablet PHA 06/16/25 In Process (Tenormin Tablet) 10:00 Citalopram Tablet PHA 06/16/25 In Process (Celexa Tablet) 10:00 Clopidogrel Bisulfate PHA 06/16/25 In Process (Plavix) 10:00 Memantine Tablet [facility] 06/15/25 In Process (Namenda Tablet) 22:00 Atorvastatin (Lipitor) [facility] 06/15/25 In Process 22:00 Donepezil Tablet [facility] 06/15/25 In Process (Aricept Tablet) 22:00 Quetiapine Fumarate [facility] 06/16/25 In Process Tablet (Seroquel Tab 10:00 Lisinopril Tablet [facility] 06/16/25 In Process (Zestril Tablet) 10:00 Vancomycin Per [facility] 06/16/25 In Process Pharmacy Protoc 23:00 Tamsulosin [facility] 06/15/25 In Process Hydrochloride (Flomax) 18:00 Kidney US 06/15/25 Resulted 17:26 Insert Mar Catheter [facility] 06/15/25 Transmitted 17:27 Strict I & O [facility] 06/15/25 In Process 19:59 Docusate Sodium [facility] 06/15/25 In Process Capsule (Colace 22:00 Communication Order ORDERS 06/15/25 Transmitted 20:34 Vancomycin Per [facility] 06/16/25 In Process Pharmacy 07:00 Vancomycin 1gm/250ml [facility] 06/17/25 In Process Kit 05:00 Vancomycin Per [facility] 06/18/25 In Process Pharmacy Protoc 17:00 Vancomycin,Trough LAB 06/18/25 Verified 16:00 Complete Blood Count LAB 06/17/25 Verified 04:00 Creatinine LAB 06/17/25 Verified 04:00 DNR [facility] 06/16/25 In Process 13:20 Code Status CODE 06/16/25 Transmitted 13:24 Ct R Shoulder Wo CT 06/16/25 Logged Contrast 13:24 Visit Coding STANDARD RES Billing Provider: BARRY CARLOS MD Date of Service if different f: Jun 16, 2025 Common Visit Codes: [id number] INP/OBS CARE(HIGH) SONIA ROCA RESIDENT Jun 16, 2025 13:44
--- NOTE | 2025-06-16 16:00 | DVH ---
INDICATION: Pain. Assess for fracture. COMPARISON: None TECHNIQUE: CT of the right shoulder was performed without contrast. Volume transverse images were obtained and reconstructed in multiple planes using bone and soft tissue algorithms. CONTRAST: None Radiation Dose Information: CTDI volume is 15.35 mGy. Dose-length product is 388.92 mGy*cm FINDINGS: Highly comminuted subacute appearing fracture of the humeral head and neck with significant impaction, half shaft with anterior displacement of the distal fragment, and apex anterior angulation. Diffuse periostitis and heterotopic ossification suggesting healing response. Resorptive change along the fracture line. Small glenohumeral joint effusion. No large focal hematoma. Subcutaneous soft tissues are clear. of the mediastinum and rightleft hemithorax are normal. IMPRESSION: Subacute appearing highly comminuted, displaced, impacted, angulated fracture of the right humeral head and neck with healing response. All CT scans at this medical facility are performed using dose modulation techniques as appropriate to a performed exam including the following: Automated exposure control was utilized; adjustment of the MA and/or KV according to patient size; and use of iterative reconstruction technique.
[2025-06-16 17:00] VITALS: BP 137/69; PULSE 55; RESP 17; TEMP 98.1; O2SAT 97
[2025-06-16] MEDS: MAGNESIUM SULFATE 1GM/100ML 100 ML IV ONE (17:07)
--- NOTE | 2025-06-16 17:36 | DVHSR ---
APPROVED REPORT EXAM: Two-dimensional and M-mode echocardiogram with Doppler and color Doppler. Blood Pressure: 146/69 mmHg INDICATION Dyspnea Heart Failure Surgery/Intervention Valve Replacement: Type: TAVR? RISK FACTORS Height: 5'4", Weight: 159 DIMENSIONS LVDd 3.9 (3.8-5.7cm) LA (2D) 4.7 (1.9-4.0cm) Aortic Root (2.0-3.7cm) LVDs 2.7 (2.5-4.0cm) LA (MM) (1.9-4.0cm) Aortic Cusp Exc (1.5-2.0cm) EF (%) 56.0 (55-70%) Rt. Atrium (1.9-4.0cm) Asc. Aorta cm IVSd 0.8 (0.7-1.1cm) RV (D) (1.8-2.4cm) Mitral Valve Mitral Mitral Stenosis E wave 1.24m/s MV Mean GR. 3mmHg A wave 1.32m/s MV Peak GR. 8mmHg E/A ratio 0.9 2D MVA cm2 DECEL Time 283ms PRESS 1/2 Time ms Aortic Valve Aortic Valve Aortic Stenosis V1 1.49m/s AO Mean GR. 11mmHg V2 2.23m/s AO Peak GR. 19mmHg LVOT Diameter 1.8 (1.8-2.4cm) Doppler SHARLENE 1.70cm2 Tricuspid Valve TR Velocity 2.61m/s RVSP 30mmHg Other Information Quality : Technically Limited Rhythm : Technically limited study due to body habitus ,patient position and moving Conclusion LVEF is normal at 60-65% Right ventricle size and function is normal TAVR is valve likely present with normal function
[2025-06-16] MEDS ORDERED: FLEET ENEMA(ADULT) 135 ML PR PRN (19:00)
[2025-06-16] MEDS ORDERED: HALOPERIDOL LACTATE 5 MG/ML INJ VIAL IM PRN (19:00)
[2025-06-16] MEDS ORDERED: LACTULOSE 20Gm/30ML SOLN PO PRN (19:00)
[2025-06-16 20:00] VITALS: PULSE 58
--- NOTE | 2025-06-16 20:19 | DVHINCON2 ---
Consult Note Consult Consult Note Requesting Service: Inpatient Medicine HISTORY OF PRESENT ILLNESS Pt with history of endometrial and ovarian cancer, recurrent nephrolithiasis, multiple UTIs, hypertension, diabetes, and hyperlipidemia. She was brought by her after an acute change in mental status , admitted to inpatient by Stephanie Lopez. Orthopedics was consulted for evaluation of a right shoulder proximal humerus fracture identified on CT of the shoulder. On interview, the patient has significant dementia with limited ability to provide history. She does not recall any fall or shoulder injury. Communication today was minimal. She does not endorse current shoulder pain except at higher degrees of motion. PAST MEDICAL HISTORY Dementia Other medical history per primary team PHYSICAL EXAMINATION General: Elderly female, no acute distress, pleasant but confused. Right Shoulder: Inspection: No gross deformity or swelling. Palpation: No significant tenderness reported. Range of Motion: Forward flexion 070 without discomfort; pain reported only when attempting >7 0. Abduction 070 with similar findings. Neurovascular: Grossly neurovascularly intact distally (sensation, capillary re fill, and motor function intact). IMAGING REVIEW CT shoulder Subacute appearing highly comminuted, displaced, impacted, angulated fracture of the right humeral head and neck with healing response. Estimated age: ?34 weeks based on cortical appearance, alignment, and early healing changes. No acute displacement suggesting new injury. Images reviewed. Case discussed with on-call orthopedic surgeon, Dr. Dugan ASSESSMENT Elderly female with dementia with subacute/chronic right proximal humerus fracture, likely sustained several weeks ago. Currently demonstrating functional ROM to 70 without pain and is neurovascularly intact. No indications for acute surgical intervention. PLAN 1. Sling for comfort as needed. 2. Weight Bearing: Nonweight bearing to the right upper extremity except for activities of daily living (light use permitted). 3. Pain Control: Per primary team; patient currently reporting minimal discomfort. 4. Therapy: Gentle pendulum exercises may be initiated with physical therapy if tolerated. 5. Follow-Up: Outpatient orthopedic follow-up in 23 weeks for repeat clinical and radiographic evaluation. 6. Communication: Findings and plan discussed with Dr. Dugan who agrees with conservative management. 7. Bedside nurse informed and plan communicated thoroughly. Plan discussed with: Other (bedside Nurse) Visit Coding Surgery Date of Service if different f: Jun 16, 2025 Billing Provider: ESSIE LEMUS Surgery Visit Codes: 10075 - INP CONSULT <55 MIN ESSIE LEMUS Jun 16, 2025 20:19
[2025-06-16 21:00] VITALS: BP 152/59; PULSE 58; RESP 18; TEMP 97.3; O2SAT 95
[2025-06-16] MEDS: MEROPENEM 1GM IVPB 50 ML IV SCH (21:09)
[2025-06-17] VITALS (8 sets, daily range): BP systolic 112–158; BP diastolic 54–74; PULSE 52–90; RESP 16–18; TEMP 97–98.1; O2SAT 93–97
[2025-06-17] MEDS ORDERED: VANCOMYCIN 1.25GM/250ML 250 ML IV SCH (05:00)
[2025-06-17] MEDS: VANCOMYCIN 1GM/250ML KIT 250 ML IV SCH (05:30)
[2025-06-17 05:55] LABS: Hematocrit 29.8 % (36.0-46.0); Hemoglobin 9.5 g/dL (12.2-16.2); Mean Corpuscular Hemoglobin 27.0 pg (28.0-32.0); Mean Corpuscular Volume 85.1 fL (80.0-100.0); Nucleated Red Blood Cells % 0.1 %
[2025-06-17 06:02] LABS: Anion Gap 9 (5-15); Carbon Dioxide 27 mmol/L (20-31); Chloride 106 mmol/L (98-107); Potassium 3.8 mmol/L (3.5-5.1); Sodium 142 mmol/L (136-145)
[2025-06-17 06:03] LABS: Calcium 8.9 mg/dL (8.7-10.4)
[2025-06-17 06:07] LABS: Glucose 102 mg/dL (74-106)
[2025-06-17 06:08] LABS: BUN/Creatinine Ratio 22.0 (10.0-20.0); Blood Urea Nitrogen 18 mg/dL (9-23); Magnesium 2.1 mg/dL (1.6-2.6)
[2025-06-17] MEDS ORDERED: hydrALAZINE HCL 20 MG/ML VL IV ONE (09:15)
--- NOTE | 2025-06-17 12:40 | DVHPNRES ---
Progress Note Date Seen: Jun 17, 2025 Resident Creating Document: SONIA ROCA RESIDENT Medical Necessity Reason Pt with a Central, PICC or Fol: Yes The following are medically ne: PICC Line Subjective Review of Systems This is a 79-year-old female with a PMH of endometrial and ovarian cancer, recurrent nephrolithiasis, multiple UTIs, S/P TAVR,dementia, hypertension, diabetes, and hyperlipidemia. She was brought by her after an acute change in mental status today; as per patient went to [facility] almost 10 days before and put her on IV antibiotic for UTI. patient's reported yesterday patient was more agitated and not following, and, more disoriented, lying on the floor. As per , patient at home is confused, AAO1-2 So reportedly called 911. Baseline per EMR is A&O 2, and on my evaluation she remained A&O 2. She was evaluated alone. She has a Mid line in the left arm for outpatient ertapenem therapy for a presumed UTI. Vitals on arrival showed no fever, pulse 55, RR 12, BP 118/84, and SpO2 90% on room air. Labs showed WBC 11.8, Hgb 9.9, platelets 319, Na and K normal, Cr 1.24 with GFR 45, glucose 213, alkaline phosphatase 164, BNP 123. UA had 1+ protein without pyuria or nitrites, which may be affected by ongoing carbapenem therapy. Head CT was normal and chest X-ray showed no acute disease. She will be admitted for evaluation of sepsis and acute encephalopathy, likely related to a urinary source given her ongoing treatment. CT abdomen and pelvis- No acute CT findings in the abdomen and pelvis. Indeterminate 2 cm left adrenal nodule. CT head no acute intracranial abnormality PMH-Endometrial cancer, ovarian cancer, recurrent nephrolithiasis, recurrent UTIs, hypertension, diabetes mellitus type 2, hyperlipidemia, dementia. PSH-Gynecologic surgeries; other surgical history not reported. Social History-Lives with . No known alcohol, tobacco, or drug use. ROS-Details could not be obtained due to patient's altered mental status Patient was seen today at bedside, Labs and chart reviewed Patient was seen by orthopedic surgeon, recommended for sling for conservative management with sling for comfort as needed, non-weightbearing to the right upper extremity x-ray for activities of daily living, pain control, physical therapy if tolerated, Ordered physical therapy evaluation, patient walked 60 ft Spoke to patient's Pascual, , discussed patient's current medical condition, plan of care and answered questions. Objective vital signs Vital Sign Date Time Temp Pulse Resp B/P (MAP) Pulse Ox O2 Delivery O2 Flow Rate FiO2 06/17/25 10:28 143/86 06/17/25 09:35 59 06/17/25 09:00 98.1 18 96 98.1 06/17/25 07:30 Room Air* 0 21 Total Intake and Output 06/16/25 06/16/25 06/17/25 15:00 23:00 07:00 Intake Total 536 ml 940 ml 350 ml Output Total 1050 ml 360 ml Balance 536 ml -110 ml -10 ml medications Current Medications Medications Dose Ordered Sig/Dannielle Route Start Time Stop Time Status Last Admin Dose Admin Acetaminophen 650 mg Q6HP PRN PO 06/14/25 12:45 Enoxaparin Sodium 40 mg DAILY SC 06/15/25 10:00 06/17/25 09:34 40 MG Diagnostic Test (Pha) 1 strip ACHS 06/14/25 17:00 06/17/25 11:54 1 STRIP Insulin Human Regular ACHS SC 06/14/25 17:00 06/17/25 06:37 3 UNITS Dextrose 50 ml UD PRN IV 06/14/25 13:15 Levothyroxine Sodium 75 mcg QAM@0600 PO 06/15/25 06:00 06/17/25 05:30 75 MCG Pantoprazole Sodium 40 mg DAILY@0600 PO 06/15/25 14:15 06/17/25 05:30 40 MG Amlodipine Besylate 5 mg DAILY PO 06/16/25 10:00 06/17/25 10:28 5 MG Atenolol 25 mg DAILY PO 06/16/25 10:00 06/17/25 09:35 25 MG Citalopram Hydrobromide 20 mg DAILY PO 06/16/25 10:00 06/17/25 09:35 20 MG Clopidogrel Bisulfate 75 mg DAILY PO 06/16/25 10:00 06/17/25 09:35 75 MG Atorvastatin Calcium 40 mg HS PO 06/15/25 22:00 06/16/25 21:10 40 MG Donepezil HCl 10 mg HS PO 06/15/25 22:00 06/16/25 21:10 10 MG Memantine 10 mg BID PO 06/15/25 22:00 06/17/25 09:35 10 MG Quetiapine Fumarate 25 mg DAILY PO 06/16/25 10:00 06/17/25 09:35 25 MG Lisinopril 40 mg DAILY PO 06/16/25 10:00 06/17/25 09:35 40 MG Tamsulosin HCl 0.4 mg QPM PO 06/15/25 18:00 Docusate Sodium 100 mg BID PO 06/15/25 22:00 06/17/25 09:35 100 MG Vancomycin HCl 250 ml @ 200 mls/hr Q18H IV 06/17/25 05:00 Cancel Meropenem 50 ml @ 17 mls/hr Q8H IV 06/16/25 20:00 06/17/25 11:54 17 MLS/HR Sodium Biphosphate/ Sodium Phosphate 135 ml ONCE PRN DC 06/16/25 19:00 Lactulose 30 ml ONCE PRN PO 06/16/25 19:00 Haloperidol Lactate 2.5 mg ONCE PRN IM 06/16/25 19:00 laboratory and microbiology Laboratory Tests 06/17/25 05:24 Test 06/17/25 05:24 Range/Units Serum Glucose 102 74-106 mg/dL Microbiology Date/Time Source Procedure Growth Status 06/14/25 10:14 Voided Urine Urine Culture - Final Complete 06/14/25 10:11 Blood Blood Culture - Preliminary NO GROWTH AFTER 72 HOURS OF INCUBATION. Resulted Problem List/Assessment/Plan Problem List/Assessment/Plan Assessment and plan #Acute metabolic encephalopathy likely due to UTI # suspected sepsis likely from UTI -at home patient was on ertapenem for UTI diagnosis at [facility] recently Urine culture no growth so far Blood culture no growth after 48 hours -continue meropenem as prescribed -continue IV fluid as prescribed # BERNICE likely due to VMN -continue IV fluid as prescribed -monitor BMP # acute retention of urine -ordered Mar catheter -ordered renal ultrasound for further evaluation and care # Right Shoulder fracture #right shoulder pain -CT Right Shoulder -Subacute appearing highly comminuted, displaced, impacted, angulated fracture of the right humeral head and neck with healing response. -Patient was seen by orthopedic surgeon, recommended for sling for conservative management with sling for comfort as needed, nonweightbearing to the right upper extremity x-ray for activities of daily living, pain control, physical therapy if tolerated, Ordered physical therapy evaluation-walked 60 ft # hypothyroidism -on levothyroxine 75 mcg q.a.m. #H/O TAVR # hypertension -resume home medication amlodipine, lisinopril monitor blood pressure # diabetes mellitus type 2 -insulin sliding scale as prescribed # hyperlipidemia -continue atorvastatin as prescribed # dementia -CT head no acute intracranial abnormality -resumed home medication memantine and donepezil # constipation -ordered lactulose PRN # history of ovarian and endometrial carcinoma Goals of care, Code status DNR ; discussed with >15 minutes PUD prophylaxis: Pantoprazole DVT prophylaxis: Lovenox Plan discussed with Dr. Pelaez, nursing staff, Total time spent on patient evaluation, chart review, assessment and plan, discussion discussion >35 minutes Plan discussed with: Patient, Other (RN) My Orders My Orders Orders - SONIA ROCA Procedure Category Date Status Time DNR SAIDA 06/16/25 In Process 13:20 Code Status CODE 06/16/25 Transmitted 13:24 Ct R Shoulder Wo CT 06/16/25 Resulted Contrast 13:24 * Orthopedic Consult CONS 06/16/25 Transmitted 17:22 Fleet Enema Adult PHA 06/16/25 In Process 19:00 Lactulose Oral PHA 06/16/25 In Process 19:00 Haloperidol Lactate PHA 06/16/25 In Process Injection (Haldol) 19:00 Pt Request For Service PT 06/17/25 Logged 06:59 Visit Coding STANDARD RES Billing Provider: BARRY CARLOS MD Date of Service if different f: Jun 17, 2025 Common Visit Codes: [id number] INP/OBS CARE(HIGH) SONIA ROCA Jun 17, 2025 12:40
[2025-06-17] MEDS ORDERED: HALOPERIDOL LACTATE 5 MG/ML INJ VIAL IM PRN (19:15)
[2025-06-18] VITALS (7 sets, daily range): BP systolic 108–156; BP diastolic 46–70; PULSE 51–67; RESP 16–18; TEMP 36.2; O2SAT 93–99
[2025-06-18 06:44] LABS: Hematocrit 29.7 % (36.0-46.0); Hemoglobin 9.6 g/dL (12.2-16.2); Mean Corpuscular Hemoglobin 27.1 pg (28.0-32.0); Mean Corpuscular Volume 84.1 fL (80.0-100.0); Nucleated Red Blood Cells % 0.1 %
[2025-06-18 07:01] LABS: Chloride 106 mmol/L (98-107); Potassium 4.0 mmol/L (3.5-5.1); Sodium 143 mmol/L (136-145)
[2025-06-18 07:02] LABS: Anion Gap 10 (5-15); Carbon Dioxide 27 mmol/L (20-31)
[2025-06-18 07:03] LABS: Calcium 9.2 mg/dL (8.7-10.4)
[2025-06-18 07:07] LABS: BUN/Creatinine Ratio 13.8 (10.0-20.0); Blood Urea Nitrogen 13 mg/dL (9-23)
[2025-06-18 07:12] LABS: Glucose 135 mg/dL (74-106)
--- NOTE | 2025-06-18 15:15 | DVHDSRES ---
Discharge Summary Date of Admission Resident Creating Document: SONIA ROCA Jun 14, 2025 at 12:43 Date of Discharge: Jun 18, 2025 Admitting Diagnosis Metabolic Encephalopathy Labs/Diagnostic Data: Laboratory Results Test 06/18/25 12:03 06/18/25 06:14 06/17/25 05:24 06/16/25 06:05 POC Glucose 163 mg/dl (70-106) White Blood Count 7.7 10^3/uL (4.4-10.8) Red Blood Count 3.53 10^6/uL (4.0-5.20) Hemoglobin 9.6 g/dL (12.2-16.2) Hematocrit 29.7 % (36.0-46.0) Mean Corpuscular Volume 84.1 fL (80.0-100.0) Mean Corpuscular Hemoglobin 27.1 pg (28.0-32.0) Mean Corpuscular Hemoglobin Concent 32.2 g/dL (32.0-36.0) Red Cell Distribution Width 16.7 % (11.8-14.3) Platelet Count 240 10^3/uL (140-450) Mean Platelet Volume 8.4 fL (6.9-10.8) Neutrophils (%) (Auto) 63.9 % (37.0-80.0) Lymphocytes (%) (Auto) 22.0 % (10.0-50.0) Monocytes (%) (Auto) 11.0 % (0.0-12.0) Eosinophils (%) (Auto) 2.5 % (0.0-7.0) Basophils (%) (Auto) 0.6 % (0.0-2.0) Neutrophils # (Auto) 4.9 10 ^3/uL (1.6-8.6) Lymphocytes # (Auto) 1.7 10 ^3/uL (0.4-5.4) Monocytes # (Auto) 0.9 10 ^3/uL (0-1.3) Eosinophils # (Auto) 0.2 10 ^3/uL (0-0.8) Basophils # (Auto) 0 10 ^3/uL (0-0.2) Nucleated Red Blood Cells 0.1 % Sodium Level 143 mmol/L (136-145) Potassium Level 4.0 mmol/L (3.5-5.1) Chloride Level 106 mmol/L (98-107) Carbon Dioxide Level 27 mmol/L (20-31) Anion Gap 10 (5-15) Blood Urea Nitrogen 13 mg/dL (9-23) Creatinine 0.94 mg/dL (0.550-1.02) Glomerular Filtration Rate Calc 63 mL/min (>90) BUN/Creatinine Ratio 13.8 (10.0-20.0) Serum Glucose 135 mg/dL (74-106) Calcium Level 9.2 mg/dL (8.7-10.4) Magnesium Level 2.1 mg/dL (1.6-2.6) Prothrombin Time 11.1 sec (9.3-11.8) Prothrombin Time INR 1.05 (0.9-1.15) Activated Partial Thromboplast Time 27.0 SEC (24.5-34.5) Phosphorus Level 3.0 mg/dL (2.4-5.1) Test 06/15/25 14:08 06/15/25 06:24 06/14/25 12:00 06/14/25 10:14 Ammonia 19 umol/L (11-32) Plasma/Serum Blood Alcohol < 3.0 mg/dL (<10) Total Bilirubin 0.5 mg/dL (0.2-1.0) Aspartate Amino Transferase (AST) 19 U/L (13-40) Alanine Aminotransferase (ALT) 15 U/L (7-40) Alkaline Phosphatase 141 U/L (46-116) Total Protein 6.3 g/dL (5.7-8.2) Albumin 3.9 g/dL (3.2-4.8) Vitamin B12 Level 967 pg/mL (211-911) Vitamin D 25-Hydroxy 30.0 ng/mL (30.0-100) Thyroid Stimulating Hormone (TSH) 1.07 uIU/mL (0.55-4.78) Lactic Acid Level 1.5 mmol/L (0.4-2.0) Troponin I High Sensitivity 5 ng/L (</=34) Triglycerides Level 163 mg/dL (< 150) Cholesterol Level 131 mg/dL (< 200) LDL Cholesterol 68 mg/dL (< 100) HDL Cholesterol 34 mg/dL (40-59) Urine Color Yellow (Yellow) Urine Clarity Clear (Clear) Urine pH 5.0 (5.0-9.0) Urine Specific Dorris 1.016 (1.001-1.035) Urine Protein 1+ (Negative) Urine Ketones Negative (Negative) Urine Blood Negative /uL (Negative) Urine Nitrite Negative (Negative) Urine Bilirubin Negative (Negative) Urine Urobilinogen Normal mg/dL (Negative) Urine Leukocyte Esterase Negative /uL (Negative) Urine RBC 3 /hpf (0 - 4) Urine Microscopic WBC 7 /HPF (0-5) Urine Squamous Epithelial Cells Few /hpf (<5) Urine Bacteria None seen /hpf (None Seen) Urine Mucus Few (None Seen) Urine Yeast (Budding) Many /hpf (None Seen) Urine Glucose Normal mg/dL (Normal) Test 06/14/25 09:57 Hemoglobin A1c 6.4 % A1C (<5.7) B-Type Natriuretic Peptide 123.55 pg/mL (0-100) Lipase 36 U/L (12-53) Other Laboratory Tests 06/18/25 06:14 Brief Hx & Hospital Course: This is a 79-year-old female with a PMH of endometrial and ovarian cancer, recurrent nephrolithiasis, multiple UTIs, S/P TAVR,dementia, hypertension, diabetes, and hyperlipidemia. She was brought by her after an acute change in mental status today; as per patient went to [facility] almost 10 days before and put her on IV antibiotic you ertapenem for UTI likely due to ESBL. patient's reported yesterday patient was more agitated and not following, and, more disoriented, lying on the floor. As per , patient at home is confused, AAO1-2 So reportedly called 911. Baseline per EMR is A&O 2, and on my evaluation she remained A&O 2. She was evaluated alone. She has a Mid line in the left arm for outpatient ertapenem therapy for a presumed UTI. Vitals on arrival showed no fever, pulse 55, RR 12, BP 118/84, and SpO2 90% on room air. Labs showed WBC 11.8, Hgb 9.9, platelets 319, Na and K normal, Cr 1.24 with GFR 45, glucose 213, alkaline phosphatase 164, BNP 123. UA had 1+ protein without pyuria or nitrites, which may be affected by ongoing carbapenem therapy. Head CT was normal and chest X-ray showed no acute disease. She will be admitted for evaluation of sepsis and acute encephalopathy, likely related to a urinary source given her ongoing treatment. CT abdomen and pelvis- No acute CT findings in the abdomen and pelvis. Indeterminate 2 cm left adrenal nodule. CT head no acute intracranial abnormality. Blood culture no growth. During hospital course ferritin had retention of uterine, Mar's catheter was inserted and later on discontinued. Patient complained of right shoulder pain, ordered CT Right shoulder-Subacute appearing highly comminuted, displaced, impacted, angulated fracture of the right humeral head and neck with healing response. Patient was seen by orthopedic surgeon, recommended for sling for conservative management with sling for comfort as needed, non-weightbearing to the right upper extremity x-ray for activities of daily living, pain control, physical therapy if tolerated. Patient is being discharged to SNF for physical therapy as well as IV antibiotic you Ertapenem 1 g IV daily for 7 days. Patient was hemodynamically stable on discharge. All questions were answered. General examination- patient with confusion HEENT- PEERLA, no acute nasal discharge Cardiovascular- S1-S2 audible, rate and rhythm regular, no murmur Respiratory- CTAB, no wheeze or rhonchi Gastrointestinal-nontender, bowel sound+. Nondistended Musculoskeletal-no acute joint swelling or tenderness or redness Lower extremity- no leg edema Neurological- cranial nerves intact, no acute dysarthria or dysphagia Psychiatry- alert and oriented x0-1 Skin- no acute rash or purpura Plan of care discussed with Dr. Saleh Consults/Reason for consult [place] [address] Ph: [phone] DIAGNOSTIC IMAGING Diagnostic Imaging Report : [id number] Signed PATIENT: LORETA SIMS ACCT: [id number] UNIT: [id number] : 1945 LOC: ER ROOM / BED: / AGE / SEX: 79 / F ADM STATUS: REG ER SERVICE 8 ORDERING PHYSICIAN: ALEKSEY PÉREZ MD PROCEDURE(s): CXRP - CHEST PORTABLE REASON: ams ORDER NUMBER(s): [id number], ACCESSION NUMBER(s): [id number] INDICATION: ams TECHNIQUE: Frontal view of the chest. COMPARISON: None FINDINGS: Cortical deformity involving the proximal right humerus, dedicated right shoulder x-ray is recommended.. The heart and mediastinal contours are grossly unremarkable. There is no evidence of pleural disease. The lungs are clear. . IMPRESSION: 1. No evidence of acute disease. ATED BY: ELIZABETH FORD MD DICTATED DATE/TIME: 06/14/25922 SIGNED BY: ELIZABETH FORD MD SIGNED DATE/TIME: 06/14/25922 CC: [place] [address] Ph: [phone] DIAGNOSTIC IMAGING Diagnostic Imaging Report : [id number] Signed PATIENT: LORETA SIMS ACCT: [id number] UNIT: [id number] : 1945 LOC: ER ROOM / BED: / AGE / SEX: 79 / F ADM STATUS: REG ER SERVICE 8 ORDERING PHYSICIAN: ALEKSEY PÉREZ MD PROCEDURE(s): HWOCT - HEAD WITHOUT CONTRAST REASON: [facility] ORDER NUMBER(s): [id number], ACCESSION NUMBER(s): [id number] EXAM: CT HEAD WITHOUT CONTRAST INDICATION: ams TECHNIQUE: CT of the head without intravenous contrast. Radiation Dose Information: CT Dose: CTDI volume is 56.9 mGy. Dose-length product is 1007.6 mGy*cm The dose indicators for CT are the volume Computed Tomography (CT) Dose Index (CTDIvol) and the Dose Length Product (DLP), and are measured in units of mGy and mGy-cm, respectively. These indicators are not patient dose, but values generated from the CT scanner acquisition factors. The report includes radiation exposure data for exposures received during this examination. COMPARISON: None FINDINGS: There is no evidence of acute intracranial hemorrhage, extra-axial collection, mass effect, midline shift, herniation or hydrocephalus. The ventricles, sulci and cisterns are age appropriate. The seymour-white differentiation is intact. Patchy periventricular and subcortical white matter hypoattenuation is nonspecific but may be related to small vessel ischemic disease. The visualized paranasal sinuses and mastoid air cells are clear. The surrounding soft tissues and osseous structures are unremarkable. IMPRESSION: No acute intracranial abnormality. ATED BY: ELIZABETH FORD MD DICTATED DATE/TIME: 06/14/25918 SIGNED BY: ELIZABETH FORD MD SIGNED DATE/TIME: 06/14/25918 CC: [place] [id number] Ph: [phone] DIAGNOSTIC IMAGING Diagnostic Imaging Report : [id number] Signed PATIENT: LORETA SIMS ACCT: [id number] UNIT: [id number] : 1945 LOC: OVERFLOW ROOM / BED: 1010-ER / A AGE / SEX: 79 / F ADM STATUS: ADM IN SERVICE 125 ORDERING PHYSICIAN: MAXIM BERMUDEZ PROCEDURE(s): ABPL - CT AB PEL WO CON-NO ORAL OR IV REASON: sepsis work up ORDER NUMBER(s): [id number], ACCESSION NUMBER(s): [id number] EXAM: CT CT AB PEL WO CON-NO ORAL OR IV HISTORY: sepsis work up Comparison Study: None Exam Date: 06/14/2025 01:16 PM Radiation Dose Information: CT Dose: CTDI volume is 16.38 mGy. Dose-length product is 952.93 mGy*cm Technique: Multidetector CT of the abdomen and pelvis was performed. Imaging was performed without IV contrast. Axial, coronal and sagittal multiplanar reformats were obtained from the axial data set by the technologist. Findings: Lack of intravenous contrast compromises evaluation of perfusion and for isodense lesions. Lower chest: Clear. Liver: Unremarkable Biliary system: Unremarkable Spleen: Unremarkable Pancreas: Unremarkable. Adrenals: 2 cm indeterminate left adrenal nodule. Kidneys and ureters: Mild left-sided pelviectasis without overt hydronephrosis. Left upper pole cysts. Bowel: No obstruction. Colonic diverticulosis without associated colonic wall thickening or surrounding stranding. Bladder: Unremarkable Reproductive organs: No abnormal mass. Lymph nodes: Unremarkable. Peritoneum: Unremarkable Vessels: Patency not evaluated on this noncontrast study. Bones and soft tissue: No aggressive osseous lesion IMPRESSION: No acute CT findings in the abdomen and pelvis. Indeterminate 2 cm left adrenal nodule. ATED BY: ELIZABETH FORD MD DICTATED DATE/TIME: 06/14/251416 SIGNED BY: ELIZABETH FORD MD SIGNED DATE/TIME: 06/14/251416 CC: [address] [address] Ph: [phone] DIAGNOSTIC IMAGING Diagnostic Imaging Report : [id number] Signed PATIENT: LORETA SIMS ACCT: [id number] UNIT: [id number] : 1945 LOC: CENTRAL ROOM / BED: [facility] / A AGE / SEX: 79 / F ADM STATUS: ADM IN SERVICE 172 ORDERING PHYSICIAN: SONIA ROCA RESIDENT PROCEDURE(s): KIDUS - KIDNEY REASON: Retention of urine, BERNICE ORDER NUMBER(s): [id number], ACCESSION NUMBER(s): [id number] INDICATION: Retention of urine, BERNICE TECHNIQUE: Multiple real-time sonographic images of the kidneys and bladder were obtained. COMPARISON: None FINDINGS: Evaluation of the kidneys is degraded by position high under the ribs. The right kidney measures 11.0 cm in length, which is normal in size. There is normal echogenicity of the right kidney. No hydronephrosis. There is trace right perinephric fluid. The left kidney measures 8.3 cm in length, mildly atrophic. There is normal echogenicity of the left kidney. No hydronephrosis. The urinary bladder is collapsed about a Mar catheter balloon. IMPRESSION: Trace right perinephric fluid, nonspecific. The left kidney appears mildly atrophic. ATED BY: LELAND FERNÁNDEZ MD DICTATED DATE/TIME: 06/15/251841 SIGNED BY: LELAND FERNÁNDEZ MD SIGNED DATE/TIME: 06/15/251841 CC: [address] [address] Ph: [phone] DIAGNOSTIC IMAGING Diagnostic Imaging Report : [id number] Signed PATIENT: LORETA SIMS ACCT: [id number] UNIT: [id number] : 1945 LOC: CENTRAL ROOM / BED: 0221 / A AGE / SEX: 79 / F ADM STATUS: ADM IN SERVICE 1324 ORDERING PHYSICIAN: SONIA ROCA PROCEDURE(s): RSHCT - CT R SHOULDER WO CONTRAST REASON: fracture ORDER NUMBER(s): [id number], ACCESSION NUMBER(s): [id number] INDICATION: Pain. Assess for fracture. COMPARISON: None TECHNIQUE: CT of the right shoulder was performed without contrast. Volume transverse images were obtained and reconstructed in multiple planes using bone and soft tissue algorithms. CONTRAST: None Radiation Dose Information: CTDI volume is 15.35 mGy. Dose-length product is 388.92 mGy*cm FINDINGS: Highly comminuted subacute appearing fracture of the humeral head and neck with significant impaction, half shaft with anterior displacement of the distal fragment, and apex anterior angulation. Diffuse periostitis and heterotopic ossification suggesting healing response. Resorptive change along the fracture line. Small glenohumeral joint effusion. No large focal hematoma. Subcutaneous soft tissues are clear. of the mediastinum and rightleft hemithorax are normal. IMPRESSION: Subacute appearing highly comminuted, displaced, impacted, angulated fracture of the right humeral head and neck with healing response. All CT scans at this medical facility are performed using dose modulation techniques as appropriate to a performed exam including the following: Automated exposure control was utilized; adjustment of the MA and/or KV according to patient size; and use of iterative reconstruction technique. ATED BY: ELIZABETH FORD MD DICTATED DATE/TIME: 06/16/25 1558 SIGNED BY: ELIZABETH FORD MD SIGNED DATE/TIME: 06/16/25 1558 CC: Operations or Procedures [place] [address] Ph: [phone] DIAGNOSTIC IMAGING Diagnostic Imaging Report : [id number] Signed PATIENT: LORETA SIMS ACCT: [id number] UNIT: [id number] : 1945 LOC: CENTRAL ROOM / BED: 0221 / A AGE / SEX: 79 / F ADM STATUS: ADM IN SERVICE 0859 ORDERING PHYSICIAN: BABU,MOHAMMED RESIDENT PROCEDURE(s): ECIDC - ECHO 2D MODE CARDIAC DOP REASON: ?CHF/Valvular heart disease? ORDER NUMBER(s): [id number], ACCESSION NUMBER(s): [id number] APPROVED REPORT EXAM: Two-dimensional and M-mode echocardiogram with Doppler and color Doppler. Blood Pressure: 146/69 mmHg INDICATION Dyspnea Heart Failure Surgery/Intervention Valve Replacement: Type: TAVR? RISK FACTORS Height: 5'4", Weight: 159 DIMENSIONS LVDd 3.9 (3.8-5.7cm) LA (2D) 4.7 (1.9-4.0cm) Aortic Root (2.0- 3.7cm) LVDs 2.7 (2.5-4.0cm) LA (MM) (1.9-4.0cm) Aortic Cusp Exc (1.5- 2.0cm) EF (%) 56.0 (55-70%) Rt. Atrium (1.9-4.0cm) Asc. Aorta cm IVSd 0.8 (0.7-1.1cm) RV (D) (1.8-2.4cm) Mitral Valve Mitral Mitral Stenosis E wave 1.24m/s MV Mean GR. 3mmHg A wave 1.32m/s MV Peak GR. 8mmHg E/A ratio 0.9 2D MVA cm2 DECEL Time 283ms PRESS 1/2 Time ms Aortic Valve Aortic Valve Aortic Stenosis V1 1.49m/s AO Mean GR. 11mmHg V2 2.23m/s AO Peak GR. 19mmHg LVOT Diameter 1.8 (1.8-2.4cm) Doppler SHARLENE 1.70cm2 Tricuspid Valve TR Velocity 2.61m/s RVSP 30mmHg Other Information Quality : Technically Limited Rhythm : Technically limited study due to body habitus ,patient position and moving Conclusion LVEF is normal at 60-65% Right ventricle size and function is normal TAVR is valve likely present with normal function SIGNED BY: AB HERRON MD SIGNED DATE/TIME: 06/16/25 5737 CC: Patient Name: LORETA SIMS Acct: [id number] Room: 0221 /Bed: A Attending Physician: SONIA ROCA RESIDENT Loc: CENTRAL Unit: [id number] CONSULTATION REPORT . ................................................................................ ............................................................................... Consult Note Consult Consult Note Requesting Service: Inpatient Medicine HISTORY OF PRESENT ILLNESS Pt with history of endometrial and ovarian cancer, recurrent nephrolithiasis, multiple UTIs, hypertension, diabetes, and hyperlipidemia. She was brought by her after an acute change in mental status , admitted to inpatient by ER. Orthopedics was consulted for evaluation of a right shoulder proximal humerus fracture identified on CT of the shoulder. On interview, the patient has significant dementia with limited ability to provide history. She does not recall any fall or shoulder injury. Communication today was minimal. She does not endorse current shoulder pain except at higher degrees of motion. PAST MEDICAL HISTORY Dementia Other medical history per primary team PHYSICAL EXAMINATION General: Elderly female, no acute distress, pleasant but confused. Right Shoulder: Inspection: No gross deformity or swelling. Palpation: No significant tenderness reported. Range of Motion: Forward flexion 070 without discomfort; pain reported only when attempting >70. Abduction 070 with similar findings. Neurovascular: Grossly neurovascularly intact distally (sensation, capillary refill, and motor function intact). IMAGING REVIEW CT shoulder Subacute appearing highly comminuted, displaced, impacted, angulated fracture of the right humeral head and neck with healing response. Estimated age: ?34 weeks based on cortical appearance, alignment, and early healing changes. No acute displacement suggesting new injury. Images reviewed. Case discussed with on-call orthopedic surgeon, Dr. Dugan ASSESSMENT Elderly female with dementia with subacute/chronic right proximal humerus fracture, likely sustained several weeks ago. Currently demonstrating functional ROM to 70 without pain and is neurovascularly intact. No indications for acute surgical intervention. PLAN 1. Sling for comfort as needed. 2. Weight Bearing: Nonweight bearing to the right upper extremity except for activities of daily living (light use permitted). 3. Pain Control: Per primary team; patient currently reporting minimal discomfort. 4. Therapy: Gentle pendulum exercises may be initiated with physical therapy if tolerated. 5. Follow-Up: Outpatient orthopedic follow-up in 23 weeks for repeat clinical and radiographic evaluation. 6. Communication: Findings and plan discussed with Dr. Dugan who agrees with conservative management. 7. Bedside nurse informed and plan communicated thoroughly. Plan discussed with: Other (bedside Nurse) Visit Coding Surgery Date of Service if different f: Jun 16, 2025 Billing Provider: ESSIE LEMUS Surgery Visit Codes: 50880 - INP CONSULT <55 MIN ESSIE LEMUS Jun 16, 2025 20:19 DICTATED BY:ESSIE LEMUS DICTATED DATE/TIME:06/16/252018 ELECTRONICALLY SIGNED BY:ESSIE LEMUS 06/16/252022 ELECTRONICALLY CO-SIGNED BY: Condition at Discharge: Stable Final Diagnosis/Problems List #Acute metabolic encephalopathy likely due to UTI # suspected sepsis likely from UTI # BERNICE likely due to VMN # acute retention of urine # Right Shoulder fracture #right shoulder pain # hypothyroidism #H/O TAVR # hypertension # diabetes mellitus type 2 # hyperlipidemia # dementia # constipation # history of ovarian and endometrial carcinoma Discharge Disposition: Detention Facility Discharge Instruct/Medications Diet: Consistent carbohydrate, Cardiac 2g Na,low cholest Activity: No Restrictions, As Tolerated Follow Up/Referral: MD at SNF/PCP Medications: As above Scheduled Amlodipine Besylate (Amlodipine Besylate), 1 TAB PO DAILY, (Reported) Atenolol (Atenolol), 1 TAB PO DAILY, (Reported) Atorvastatin Calcium (Atorvastatin Calcium), 1 TAB PO DAILY, (Reported) Cholestyramine (Cholestyramine), 1 PKT PO DAILY, (Reported) Citalopram Hydrobromide (Citalopram Hydrobromide), 1 TAB PO DAILY, (Reported) Clopidogrel Bisulfate (Clopidogrel), 1 TAB PO DAILY, (Reported) Dapagliflozin Propanediol-Metf (Dapagliflozin Propanediol 5-1000 mg), 2 TAB PO QAM, (Reported) Donepezil Hydrochloride (Donepezil Hcl), 1 TAB PO DAILY, (Reported) Levothyroxine Sodium (Levothyroxine Sodium), 1 TAB PO DAILY, (Reported) Lisinopril (Lisinopril), 1 TAB PO DAILY, (Reported) Memantine Hydrochloride (Memantine HCl), 1 TAB PO BID, (Reported) Omeprazole (Omeprazole Dr), 1 CAP PO DAILY, (Reported) Miscellaneous Medications Atenolol (Atenolol), (Reported) Ertapenem Sodium (Ertapenem Sodium), (Reported) Lisinopril (Zestril), (Reported) Metformin Hydrochloride (Metformin Hcl), (Reported) Quetiapine Fumerate (Quetiapine Fumarate), TAB PO, (Reported) Simvastatin (Simvastatin), (Reported) [Novolog], (Reported) Discharge Statement: "Patient was advised to return to the ER or call 911 if any headaches, dizziness, shortness of breath, chest pain, abdominal pain, bleeding, fevers, or worsening of medical condition. Patient was counseled about treatment plan, medications, possible side effects, patientverbalized understanding. All questions were answered to the best of my ability. This discharge took greater then 30 minutes in planning, reviewing documentation, counseling the patient, and discussing with other team members." ASSESSMENT ASSESSMENT Assessment Metabolic encephalopathy UTI Visit Coding STANDARD RES Billing Provider: BARRY SALEH MD Date of Service if different f: Jun 18, 2025 Common Visit Codes: 99539-VZS/OBS DISCH DAY >30min SONIA ROCA RESIDENT Jun 18, 2025 15:15
[2025-06-18] MEDS: ERTAPENEM SOD INJ 1 GM in SODIUM CHL 0.9% 50 ML IV ONE (16:36)
[2025-06-19] MEDS ORDERED: ERTAPENEM SOD 1 GM INJ VIAL IV SCH (10:00)
[2025-06-19] MEDS ORDERED: ERTAPENEM SOD INJ 1 GM in SODIUM CHL 0.9% 50 ML IV SCH (10:00)
== END 2025-06-18 19:20 | DRG 871 ==
LOC: EDUNIT# 08:12 → EDBD 08:12 → ER 08:12 → OVERFLOW 12:43 → CENTRAL 20:20
PROVIDERS: ADMIT Internal Medicine Geriatric Medicine; ATTEND Internal Medicine Geriatric Medicine
DX: A41.9 Sepsis, unspecified organism (principal); G93.41 Metabolic encephalopathy; N17.0 Acute kidney failure with tubular necrosis; N39.0 Urinary tract infection, site not specified; Z79.02 Long term (current) use of antithrombotics/antiplatelets; E03.9 Hypothyroidism, unspecified; E11.9 Type 2 diabetes mellitus without complications; F03.90 Unspecified dementia, unspecified severity, without behavioral disturbance, psychotic disturbance, mood disturbance, and anxiety; I10 Essential (primary) hypertension; Z95.2 Presence of prosthetic heart valve; M84.421A Pathological fracture, right humerus, initial encounter for fracture; Z66 Do not resuscitate; E78.5 Hyperlipidemia, unspecified; R33.9 Retention of urine, unspecified; K59.00 Constipation, unspecified; Z87.891 Personal history of nicotine dependence; Z90.710 Acquired absence of both cervix and uterus; Z85.42 Personal history of malignant neoplasm of other parts of uterus; Z85.43 Personal history of malignant neoplasm of ovary; Z87.442 Personal history of urinary calculi
CPT/HCPCS: 36415; 70450; 71045; 73200; 74176; 76775; 80048; 80053; 80061; 80320; 81001; 82140; 82306; 82607; 82962; 83036; 83605; 83690; 83735; 83880; 84100; 84443; 84484; 85025; 85610; 85730; 87040; 87086; 93005; 93306; 96365; 97110; 97116; 97163; 97530; 99291; G0378; J1335; J1815; J2185